=== PATIENT | female | born 1995 | race Caucasian/White ===

== ENCOUNTER 2022-11-12 13:58 | Outpatient (CLI) | payer BC, SELFPAY ==
--- NOTE | 2022-11-12 14:00 | CRLHL7_ITS ---
For Patients: As a result of the Cures Act, medical imaging exams and procedure reports are released immediately into your electronic medical record. You may view this report before your referring provider. If you have questions, please contact your health care provider. INDICATION: Early . Dating and viability. LMP: 09/04/2022 GAEL by LMP: 06/11/2023 Gestational age: 9 weeks 6 days Previous ultrasound: No TECHNIQUE: Obstetrical ultrasound. Endovaginal imaging and transabdominal imaging were utilized. Endovaginal imaging was required to visualize early and adnexal structures. FINDINGS: CRL: 3.3 cm, 10 weeks 2 days. GAEL: 06/08/2023 heart rate: 170 bpm Gestational sac: 4.7 cm, appears within normal limits Yolk sac: 3.5 mm, appears within normal limits Right ovary: Within normal limits; 3.7 x 2.5 x 2.3 cm. CL. Left ovary: 2.4 x 1.1 x 1.4 cm IMPRESSION: 1. Sonographically normal appearance of an intrauterine . 2. Single fetus with the yolk sac visible and normal separation of the amnion and chorion. 3. Corpus luteum cyst is probably in the right ovary, 1.8 cm. 4. There is a large anechoic sonolucent left ovarian or paraovarian cyst measuring 9.5 x 5.1 x 10.1 cm. Suggest follow-up. Dictated by Amador Bolaños MD @ 11/15/2022 1:30:39 PM (Electronically Signed)
== END 2022-11-12 13:59 | disposition home or self-care (01) ==
LOC: US 14:00
PROVIDERS: Visit Provider Physician Assistant
DX: Z34.91 Encounter for supervision of normal pregnancy, unspecified, first trimester (principal); Z3A.09 9 weeks gestation of pregnancy
CPT/HCPCS: 76801; 76817; 86592; 86703; 86762; 86787; 86803; 86850; 86900; 86901; 87086; 87340; 87491; 87591

== ENCOUNTER 2022-11-12 15:27 | Outpatient (CLI) | payer BC, SELFPAY ==
[2022-11-12 18:49] LABS: Chlamydia DNA Amplified* NOT DETECTED (No Detected); GC DNA Amplified* NOT DETECTED (No Detected)
== END 2022-11-12 15:28 | disposition home or self-care (01) ==
PROVIDERS: Visit Provider Physician Assistant
DX: Z34.91 Encounter for supervision of normal pregnancy, unspecified, first trimester (principal); O34.81 Maternal care for other abnormalities of pelvic organs, first trimester; N83.202 Unspecified ovarian cyst, left side; Z3A.10 10 weeks gestation of pregnancy
CPT/HCPCS: 86592; 86703; 86762; 86787; 86803; 86850; 86900; 86901; 87086; 87340; 87491; 87591

== ENCOUNTER 2022-12-10 12:50 | Outpatient (CLI) | payer BC, SELFPAY ==
--- NOTE | 2022-12-10 13:00 | CRLHL7_ITS ---
For Patients: As a result of the Century Cures Act, medical imaging exams and procedure reports are released immediately into your electronic medical record. You may view this report before your referring provider. If you have questions, please contact your health care provider. INDICATION: Followup large left adnexal cyst. TECHNIQUE: Transabdominal obstetrical ultrasound. COMPARISON: November 12, 2022. FINDINGS: There is a large left adnexal or ovarian cyst measuring 10.1 x 4.8 x 11.1 cm previously 9.2 x 5.1 x 10.1 cm. This could also potentially be a paraovarian cyst/cyst in the broad ligament. Single living intrauterine with a heart rate of 144 beats per minute. Right lateral and fundal placenta. Amniotic fluid volume is normal with a single deepest pocket measurement of 3.5 cm. Composite calculated ultrasound age 14 weeks 5 days with a sonographic due date of June 05, 2023. (The crown-rump length of 8.89 cm corresponds to a 14 week 6 day gestation). IMPRESSION: 1. Single living intrauterine with a composite calculated ultrasound age of 14 weeks 5 days with a sonographic due date of June 05, 2023. 2. Enlarged left adnexal/ovarian cyst measuring 10.1 x 4.8 x 11.1 cm previously 9.2 x 5.1 x 10.1 cm. Dictated by Ishaan Abel MD @ 12/10/2022 4:06:52 PM (Electronically Signed)
== END 2022-12-10 12:51 | disposition home or self-care (01) ==
PROVIDERS: PCP Physician Assistant; Visit Provider Physician Assistant
DX: N83.12 Corpus luteum cyst of left ovary (principal)
CPT/HCPCS: 76816; 93976

== ENCOUNTER 2023-01-27 14:02 | Outpatient (CLI) | payer BC, SELFPAY ==
--- NOTE | 2023-01-27 14:00 | CRLHL7_ITS ---
For Patients: As a result of the Century Cures Act, medical imaging exams and procedure reports are released immediately into your electronic medical record. You may view this report before your referring provider. If you have questions, please contact your health care provider. INDICATION: Evaluate anatomy. COMPARISON: 11/12/2022, 12/10/2022 TECHNIQUE: Real time saravia scale imaging of the fetus was performed as well as color Doppler analysis of the umbilical vessels. FINDINGS: Sonographic imaging demonstrates a single living intrauterine gestation. Fetus demonstrates a regular cardiac rate of 142 beats per minute. Fetus has a breech position. The placenta lies posteriorly without evidence of placenta previa. The placental edge is located 6.8 cm from the internal cervical os. Amniotic fluid volume appears normal. Single deepest vertical pocket: 4.1 cm. The cervix is closed and measures 3.1 cm in length. The composite ultrasound gestational age is calculated at 21 weeks 0 days with an estimated sonographic due date of 06/09/2023. The estimated weight is 386 grams which lies at the 56th %. The following biometric measurements were obtained: Biparietal diameter: 5.0 cm/21 weeks 0 days 61st% Head circumference: 18.2 cm/20 weeks 4 days 35th% Abdominal circumference: 15.9 cm/21 weeks 0 days 53rd% Femur length: 3.5 cm/20 weeks 6 days 47th% The HC/AC ratio measures: 1.15 range (1.06-1.25) On anatomic survey, there is a normal appearance of the cerebral ventricles, cavum septi pellucidi, cisterna magna and cerebellum. The nose, lips, and facial profile appear normal. The cervical, thoracic and lumbar spine are well visualized and appear normal. There is a normal four-chamber heart view and the left and right ventricular outflow tracts appear normal. The diaphragm and stomach appear normal. The kidneys and bladder also appear normal. There is a normal three-vessel cord and cord insertion site. The four extremities appear normal. IMPRESSION: Normal OB ultrasound exam with concordance of clinical and sonographic dating. No intrinsic abnormalities noted on anatomic survey. Dictated by Brando Samano MD @ 01/27/2023 3:59:42 PM (Electronically Signed)
== END 2023-01-27 14:03 | disposition home or self-care (01) ==
LOC: US 14:02
PROVIDERS: PCP Physician Assistant; Visit Provider Obstetrics & Gynecology
DX: Z34.92 Encounter for supervision of normal pregnancy, unspecified, second trimester (principal); Z3A.21 21 weeks gestation of pregnancy
CPT/HCPCS: 76805

== ENCOUNTER 2023-03-23 08:53 | Outpatient (CLI) | payer BC, SELFPAY ==
--- NOTE | 2023-03-23 08:45 | CRLHL7_ITS ---
For Patients: As a result of the Cures Act, medical imaging exams and procedure reports are released immediately into your electronic medical record. You may view this report before your referring provider. If you have questions, please contact your health care provider. INDICATION: Third trimester scan, evaluate growth. COMPARISON: 01/27/2023 TECHNIQUE: Real time saravia scale imaging of the fetus was performed. FINDINGS: Sonographic imaging demonstrates a single living intrauterine gestation. Fetus demonstrates a regular cardiac rate of 131 beats per minute. Fetus has a breech position. The placenta lies fundal. Amniotic fluid volume appears normal and there is a single deepest vertical pocket: 4.8 cm. The estimated weight is 1326gm which lies at the 55th %. On the prior OB ultrasound exam dated 01/27/2023 the estimated weight was at the 56th%. BPD 21st percentile. HC 59th percentile. AC 77th percentile. FL 19th percentile. The HC/AC ratio measures 1.07 range (0.99-1.21). Left adnexal cyst is present measuring 10.4 x 7.1 x 8.5 cm. IMPRESSION: Sonographic gestational age 28 weeks 6 days and sonographic due date 06/09/2023. Good correlation with dates. Normal interval growth. Estimated weight 55th percentile. Abdominal circumference 77th percentile. Simple anechoic left adnexal cyst measuring 10.4 x 7.1 x 8.5 cm. Dictated by Brando Samano MD @ 03/23/2023 10:32:30 AM (Electronically Signed)
== END 2023-03-23 08:54 | disposition home or self-care (01) ==
LOC: US 08:54
PROVIDERS: Visit Provider Obstetrics & Gynecology
DX: Z34.93 Encounter for supervision of normal pregnancy, unspecified, third trimester (principal); O34.83 Maternal care for other abnormalities of pelvic organs, third trimester; N83.292 Other ovarian cyst, left side; Z3A.28 28 weeks gestation of pregnancy
CPT/HCPCS: 76816; 86592

== ENCOUNTER 2023-05-06 11:59 | Outpatient (CLI) | payer BC, SELFPAY ==
--- NOTE | 2023-05-06 12:15 | CRLHL7_ITS ---
For Patients: As a result of the Century Cures Act, medical imaging exams and procedure reports are released immediately into your electronic medical record. You may view this report before your referring provider. If you have questions, please contact your health care provider. HISTORY: Follow-up left adnexal cyst, growth, biophysical profile. COMPARISON: Ob ultrasound from 03/23/2023. TECHNIQUE: Ultrasound examination of the is performed with transabdominal technique. FINDINGS: A single intrauterine gestation is seen in breech presentation with regular cardiac activity at 121 beats per minute. The placenta is fundal and is free of the cervical os. The placental grade is III and the amniotic fluid volume is normal. Single deepest vertical pocket: Normal at 7.1 cm. The cervix is normal in appearance and is normal in length at 4.4 centimeters. BPD: 8.6 cm 34 weeks 5 days HC: 32.7 cm 37 weeks 1 day AC: 30.3 cm 34 weeks 2 days FL: 6.4 cm 32 weeks 6 days The estimated age by ultrasound is 34 weeks 5 days, with an estimated date of delivery of 06/12/2023. This correlates well with the clinical age of 34 weeks 6 days and previous ultrasound. The ultrasound ratios are normal. The estimated weight of 2400 grams is at the 29th percentile. The rate of growth is decreased compared to the previous study where estimated weight was at the 55th percentile. A anatomic survey is not performed. Normal biophysical profile score of 8/8, no points off. There is a large cyst in the left adnexa measuring 8.3 x 10.2 x 6.7 centimeters, unchanged from the previous study. IMPRESSION: Single intrauterine gestation in breech presentation with regular cardiac activity. Estimated gestational age is 34 weeks 5 days. Estimated weight of 2400 grams is at the 29th percentile. The rate of growth is decreased compared to the previous study where estimated weight was at the 55th percentile. Normal biophysical profile score of 8/8, no points off. Stable large left adnexal cyst measuring up to 10.2 centimeters in diameter. Dictated by Mervin Lyons MD @ 05/07/2023 6:35:27 PM (Electronically Signed)
== END 2023-05-06 12:00 | disposition home or self-care (01) ==
LOC: US 11:59
PROVIDERS: Visit Provider Obstetrics & Gynecology
DX: O34.83 Maternal care for other abnormalities of pelvic organs, third trimester (principal); N83.292 Other ovarian cyst, left side; Z3A.34 34 weeks gestation of pregnancy
CPT/HCPCS: 76816; 76819

== ENCOUNTER 2023-05-13 11:54 | Outpatient (CLI) | payer BC, SELFPAY | END 2023-05-13 11:55 | disposition home or self-care (01) | LOC: NFLDREF 05-15 07:42 | PROVIDERS: Visit Provider Obstetrics & Gynecology | DX: Z34.93 Encounter for supervision of normal pregnancy, unspecified, third trimester (principal); Z3A.35 35 weeks gestation of pregnancy | CPT/HCPCS: 87081; 87653 ==

== ENCOUNTER 2023-05-26 09:01 | Outpatient (CLI) | payer BC, SELFPAY ==
[2023-05-26 09:19] VITALS: TEMP 37.1
[2023-05-26] MEDS: TERBUTALINE 1 MG/ML INJ 0.25 MG SUBCUT (10:20)
--- NOTE | 2023-05-26 10:26 | PM.PROC ---
Procedure Note Time Seen by Provider: 10:26 Date Seen: 05/26/23 Date of procedure: 05/26/23 Will [facility] bill your pro fee for this procedure?: Yes Procedure Description: I discussed with patient that 3-4% of pregnancies are breech at term.?We discussed the rationale for doing the procedure at 37 weeks (technically feasible, fetus is term should delivery be indicated, and lower risk of reversion). Contraindication to external cephalic version is anything that is a contraindication to vaginal delivery such as a placenta previa, multiple previous CD etc. Patient doesn?t have any contraindications. The benefit of an external cephalic version is fewer delivery.? There is a lower odd of endometritis, sepsis, hospital stay greater than 7 days.? It is important to know that there is no difference for low APGARs, low umbilical vein pH, and when comparing external cephalic version with subsequent vaginal delivery to planned delivery at term. The risks of external cephalic version: heart rate changes (most common in stabilizes when procedure is discontinued). ?Overall, serious adverse effects are very low, all < 1%.? These include placental abruption, umbilical cord prolapse, rupture of membranes, stillbirth, maternal hemorrhage.? The risk of an emergency delivery is also low. We discussed factors affecting success.? The overall success rate quoted in the literature is 58%.? Factors that her favorable towards a successful external cephalic version are increased parity, transverse or oblique presentation, normal amniotic volume, normal maternal BMI, and posterior placental location. Factors more associated with failure is nulliparity, advanced dilation, weight less than 2500g, anterior placenta, and low station. She will be given terbutaline for tocolysis prior to the procedure.? We discussed that terbutaline has doubled the rate of ECV success.? With regards to anesthesia, neuraxial anesthesia is available to her should she desire. I will be performing an ultrasound prior to the ECV to confirm positioning.? Additionally, if we are to proceed with the external cephalic version we will get a reactive NST prior to proceeding.? During the procedure intermittent ultrasonography will be used to assess for status.? If there is any concern for or maternal well being the procedure will be terminated immediately. After the procedure, regardless of success or not, she and fetus will be monitored for at 1 hr prior to discharge. Patient does not require RhoGAM as she is Rh positive. Procedure: External cephalic version Procedure Description: PREOPERATIVE DIAGNOSIS: 1. Intrauterine at 37 5/7 weeks gestation. 2. Breech presentation. POSTOPERATIVE DIAGNOSIS: 1. Intrauterine at 37 5/7 weeks gestation. 2. Vertex presentation. PROCEDURE: 1. Nonstress test. 2. Limited OB ultrasound. 3. External cephalic version. SURGEON: MD Kali INSPECTOR TESTER SORTER: MD Harpal ANESTHESIA: None. COMPLICATIONS: None. FINDINGS: Nonstress test: heart rate baseline 130s beats per minute, moderate variability, 15 x 15 accelerations present, no decelerations, category 1. Limited OB ultrasound: Single, living, intrauterine gestation in a monalisa breech presentation with the back along the maternal left, grossly normal amniotic fluid volume. PROCEDURE NOTE: A nonstress test was performed, which was reactive and reassuring. A limited OB ultrasound was performed at the bedside to determine position. Findings noted above. Informed consent was obtained for external cephalic version. Terbutaline 0.25 mg was administered to the patient subcutaneously. External cephalic version was attempted. Dr. Rowan applied upward pressure to the breech and I applied pressure to the vertex, and we attempted to gently coax the fetus in a forward roll in a counter-clockwise direction. This first attempt was successful. heart tones were noted to be normal after the attempt. The patient tolerated the procedure well. monitoring for 1 hour after the procedure was continued to be reassuring. Anesthesia: None Condition: stable Disposition: same day discharge Anesthesia: none
--- NOTE | 2023-05-26 12:31 | PC.OBNST ---
NST Note NST Note Start: 05/26/23 09:27 Freq: ONCE Status: Discharge Protocol: Document 05/26/23 11:55 PENTECOSTALISM (Rec: 05/26/23 12:30 PENTECOSTALISM [id number]) NST Note 1 Para (# of births) 0 EDC 06/11/23 Gestational Age In Weeks & Days 37 Weeks & 5 Days Patient Presented with Complaint(s) of Other Other Complaints ECV Reactive Yes Appropriate for Gestational Age Yes LIAM Garcia Date 05/26/23 Reactive Yes Appropriate for Gestational Age Yes LIAM Vance Date 05/26/23 OB NST charge Yes Complete NST Note via Write Note Yes The provider's electronic signature indicates the NST is reactive/appropriate for gestational age. *Note to provider: If an addendum is required, open the patient's chart and click on the note under the Nurse/Allied Health tab.
== END 2023-05-26 12:00 | disposition home or self-care (01) ==
LOC: OB 11:55 → OB OUT 14:24 → OB 14:25
PROVIDERS: Visit Provider Obstetrics & Gynecology
DX: O47.1 False labor at or after 37 completed weeks of gestation (principal); Z3A.37 37 weeks gestation of pregnancy
CPT/HCPCS: 59025; 59412; 76815; 99211; J3105

== ENCOUNTER 2023-06-13 15:56 | Inpatient (IN) | payer BC, SELFPAY ==
[2023-06-13 16:30] VITALS: BMI 27.3
[2023-06-13 16:32] VITALS: BP 131/81; PULSE 72; RESP 16; TEMP 36.8
--- NOTE | 2023-06-13 17:11 | W.PM.LDBA ---
Subjective History of Present Illness Narrative: Patient is being admitted to Labor and Delivery for elective IOL. She is a 28 year old woman at 40 2/7 weeks gestation. She had fetus in breech presentation, but is now s/p successful ECV 01/23. Her full history and physical was dictated by Priscilla Jackson on 05/23/23. Please see this for details. Specific Issues/Plans 1. Large L adnexal cyst, 9.2 x 5.1 x 10.1 cm Repeat ultrasound in 4 weeks and visit with MD: Simple cyst, left ovary measuring 10.1 x 4.8 x 11.1 cm. Perinatology consultation: Saw [facility] on 12/28/2022. Simple left adnexal cyst measuring 9.0 x 7.4 x 8.4 mm. For simple cyst less than 10 cm, it is reasonable to follow the cyst size expectantly without surgical removal. Quoted risk: 2% risk for cyst rupture during and , 10% risk for ovarian torsion, particularly in 1st trimester and . The patient will follow up with [facility] again in 4 weeks for comprehensive ultrasound and to reassess ovarian cyst. If the cyst is stable in size or smaller, recommendation to reassess cyst size at 28 and 34 weeks in [place]. And follow-up: 01/25/2023, left simple ovarian cyst 9.4 x 8.5 x 9.6 cm. Recommendation made to reassess the ovarian cyst at 28 and 34 weeks gestation in [place]. 03/23/23: Left adnexal cyst: 10.4 x 7.1 x 8.5 cm. No significant change. Growth ultrasound: Breech presentation, single deepest pocket of amniotic fluid 4.8 cm, BPD: 21 percentile, HC: 59 percentile, AC: 77 percentile, FL: 19 percentile. EFW 1326 g, 55 percentile. 2. Anemia: Hgb at 28 weeks: 10.0 Start ferrous sulfate every other day Repeat Hgb at 34 weeks 3. Breech at 37 weeks, s/p successful ECV on 05/26 - Confirm presentation by US on admission for labor Tdap: 04/05/23 OB - Problem Based A/P Additional Plan (1) Left ovarian cyst: Problem details: 10.1 x 4.8 x 11.1 cm on most recent US Status: Acute (2) Term : Status: Acute Plan: Cervical ripening instituted with cytotec vaginal tablets 25 mcg Q 3-4 hrs. EFM per protocol. GBS negative (3) Anemia affecting : Status: Acute Plan: Hb 10.9 at admit. Delivery/Labor/Induction Plan Plan: induction Induction method: per misoprostol protocol OB Exam Physical Exam Vital signs: Pulse BP 72 131/81 06/13/23 16:32 06/13/23 16:32 Narrative: Physical exam: General: No acute distress Psych: Alert and oriented x3, full affect HEENT: Normocephalic, atraumatic Neck: No cervical adenopathy, no thyromegaly Heart: Regular rate and rhythm, no murmur rub or gallop Lungs: Clear to auscultation bilaterally Abdomen: Soft, nontender, gravid, cephalic lie Pelvic exam: Cervix 1 cm, long, high, mid position, moderate consistency tracing: Baseline 120, accelerations present, no decelerations, moderate variability. Bedside ultrasound: Confirms cephalic lie
[2023-06-13] MEDS: miSOPROStoL 25 MCG/0.25 TABLET VAGINAL ×3 (17:30→23:37)
[2023-06-13 18:30] VITALS: RESP 16; TEMP 36.9
[2023-06-13 18:46] LABS: Basophils Absolute Auto 0.03 K/uL (0.00-0.30); Basophils Percent Auto 0.3 % (0.0-3.0); Eosinophils Absolute Auto 0.07 K/uL (0.00-0.50); Eosinophils Percent Auto 0.7 % (0.0-7.0); Hematocrit 34.5 % (33.0-51.0); Hemoglobin* 11.5 gm/dL (12.0-16.0); Immature Granulocytes Abs Auto 0.02 K/uL (0.00-0.30); Immature Granulocytes Pct Auto 0.2 %; Lymphocytes Percent Auto 14.7 % (20-44); Mean Corpuscular HGB Conc 33 gm/dL (32-36); Mean Corpuscular Hemoglobin 30 pg (26-34); Mean Corpuscular Volume 91 fL (80-100); Monocytes Percent Auto 8.1 % (0.0-11.0); Platelet Count* 198 K/uL (140-440); RDW Coefficient of Variation % 14.7 % (11.5-15.5); Red Blood Count 3.79 m/uL (4.00-5.20); White Blood Count* 10.75 K/uL (4.50-11.00)
[2023-06-13 18:49] LABS: Slide Review Reflex No
[2023-06-13 20:18] VITALS: BP 130/80; PULSE 78; RESP 18; TEMP 36.8
[2023-06-13 23:30] VITALS: BP 140/95; PULSE 71; RESP 16; TEMP 37.1
[2023-06-13] MEDS: MORPHINE 10 MG/ML inj IM (23:38)
[2023-06-13] MEDS: hydrOXYzine pamoate 25 MG CAPSULE 100 MG PO (23:38)
[2023-06-13 23:49] VITALS: BP 122/84; PULSE 68
[2023-06-14] VITALS (87 sets, daily range): BP systolic 94–146; BP diastolic 52–97; PULSE 56–97; RESP 16–18; TEMP 36.6–37.7; O2SAT 88–100
[2023-06-14] MEDS: LACTATED RINGERS 1000 ML 1,000 ML 500 ML IV ×3 (01:52→07:41)
[2023-06-14] MEDS: OXYTOCIN 30 unit/500 ML in NS 30 UNIT/500 ML BAG IVPB (02:55)
[2023-06-14] MEDS: LIDOCAINE 2% (PF) 5 ML VIAL EPIDURAL (03:39)
[2023-06-14] MEDS: ROPIVACAINE 0.2% 100 ml 100 ML 12 MG EPIDURAL ×2 (03:45→11:53)
[2023-06-14] MEDS: PHENYLEPHRINE 100 MCG/ML SYRINGE IVP ×4 (03:51→04:40)
--- NOTE | 2023-06-14 03:58 | P.ANBPRC_ITS ---
[facility] Social History Narrative: . Her family owns [employer] [facility] What is your current living situation?: I presently have a place to live Problems where you live: no known problems In the past 12 months, utilities in danger of being shut off: no In past 12 months, lack of transportation kept you from medical appts, meetings, work, or getting things needed for daily living: no In the past 12 mos, have been you worried that your food would run out before you had money to buy more?: never true In the past 12 mos, the food you bought just didn't last and you didn't have money to buy more?: never true Smoking Status: Never smoker How often does anyone, including family, friends and others, physically hurt you : never How often does anyone, including family, friends and others, insult or talk down to you: never How often does anyone, including family, friends and others, threaten you with harm: never How often does anyone, including family, friends and others, scream or curse at you: never Little interest or pleasure in doing things: not at all Feeling down, depressed, or hopeless: not at all Meds Home Medications and Allergies Home Medications Medication Instructions Recorded Confirmed Type prenat.vits,benito,ctj-psgc-iupio 1 tab PO QDAY 11/12/22 06/13/23 History calcium carbonate 200 mg calcium 200 mg PO BID 04/05/23 06/13/23 History (500 mg) chewable tablet (Tums) Allergies Allergy/AdvReac Type Severity Reaction Status Date / Time No Known Drug Allergies Allergy Verified 06/06/23 08:47 Results Labs Labs: Laboratory Results - last 24 hr 06/13/23 06/13/23 14:43 18:43 WBC 10.75 RBC 3.79 L Hgb 11.5 L Hct 34.5 MCV 91 MCH 30 MCHC 33 RDW Coeff of Jalil 14.7 Plt Count 198 Neut % (Auto) 76.0 H Lymph % (Auto) 14.7 L [place] % (Auto) 8.1 Eos % (Auto) 0.7 Baso % (Auto) 0.3 Neut # (Auto) 8.20 H Lymph # (Auto) 1.60 [place] # (Auto) 0.90 Eos # (Auto) 0.07 Baso # (Auto) 0.03 Abs Immat Gran (auto) 0.02 Imm/Tot Granulo (auto) 0.2 Blood Type B Positive Antibody Screen NEGATIVE Vital Signs Vital Signs: Last Vital Signs Temp 98.2 F 06/14/23 02:49 Pulse 61 06/14/23 03:57 Resp 18 06/14/23 02:49 BP 112/70 06/14/23 03:57 Pulse Ox 98 06/14/23 03:57 Weight: 72.376 kg Height: 162.56 cm Anesthesia Procedures Epidural Insertion Patient Location: OB Start Time: 03:10 Stop Time: 04:10 Start Date: 06/14/23 Stop Date: 06/14/23 Reason for Block: procedure for pain Patient Position: sitting Performed By: Candis Henderson Preanesthetic Checklist: IV checked, risks and benefits discussed, monitors and equipment checked, pre-op evaluation, timeout performed and anesthesia consent Prep: chlorhexidine gluconate Monitoring: blood pressure monitoring, continuous pulse oximetry and heart rate Approach: midline Vertebral Space: lumbar (1-5) Epidural Technique: JESICA saline Needle Type: Tuohy needle Injection Technique: continuous catheter (continuous catheter) Needle gauge: 17 Needle Length (cm): 10 cm Needle Insertion Depth (cm): 5 Catheter Gauge: 19 Catheter Type: multi-orifice Catheter at skin depth (cm): 12 Test Dose Result: negative and lidocaine 1.5% with epinephrine 1 to 200,000
[2023-06-14 05:49] LABS: Hematocrit 35.3 % (33.0-51.0); Hemoglobin* 11.6 gm/dL (12.0-16.0); Mean Corpuscular HGB Conc 33 gm/dL (32-36); Mean Corpuscular Hemoglobin 30 pg (26-34); Mean Corpuscular Volume 91 fL (80-100); Platelet Count* 166 K/uL (140-440); Red Blood Count 3.88 m/uL (4.00-5.20); White Blood Count* 13.84 K/uL (4.50-11.00)
[2023-06-14 05:53] LABS: Slide Review Reflex No
[2023-06-14 06:04] LABS: Alanine Aminotransferase* 13 U/L (4-35); Aspartate Amino Transferase* 30 U/L (12-35); Blood Urea Nitrogen* 8 mg/dL (5-24); Creatinine* 0.5 mg/dL (0.5-1.5); Est. Creatinine Clearance* 143.36; Estimated Glomerular Filt Rate 130 ml/min
--- NOTE | 2023-06-14 07:46 | P.OBPN_ITS ---
Subjective Time Seen by Provider: 07:30 Date Seen: 06/14/23 Narrative: Patient feels well. Pain under good control with epidural. Objective Vital Signs: Last Vital Signs Temp 97.9 F 06/14/23 06:59 Pulse 73 06/14/23 07:37 Resp 18 06/14/23 06:59 BP 114/66 06/14/23 07:37 Pulse Ox 97 06/14/23 04:07 Pelvic Exam Dilation (cm): 7 Effacement (%): 75 Station: -2 Comments: BBOW. Exam by RN at 0556. Contractions Monitor mode: External Contraction Frequency: 1-3 minutes Contraction pattern: Regular Contraction intensity: Strong/Firm Assessment Assessment: active labor Status: Category l Heart Rate Baseline: 130 Welding Manager Variability: Moderate (6-25) Monitor Accelerations: Present Monitor Decelerations: None Plan Plan: Continue expectant management. Amniotomy offered, patient declines at this time as she would like additional rest.
--- NOTE | 2023-06-14 10:19 | PM.OBPNL ---
Subjective Time Seen by Provider: 10:20 Date Seen: 06/14/23 Narrative: Feeling slightly more pressure with contractions. Objective Vital Signs: Last Vital Signs Temp 99.9 F H 06/14/23 08:22 Pulse 65 06/14/23 10:09 Resp 16 06/14/23 08:22 BP 111/62 06/14/23 10:09 Pulse Ox 97 06/14/23 04:07 Pelvic Exam Dilation (cm): 4 Effacement (%): 100 Station: -2 Comments: BBOW Contractions Monitor mode: External Contraction pattern: Regular Contraction intensity: Strong/Firm Assessment Station: -2 Amniotic Membrane Status: AROM (Clear fluid, blood clot washed out with flow) Status: Category ll Heart Rate Baseline: 125 Intermediate Variability: Minimal (3-5) Monitor Accelerations: Absent Monitor Decelerations: None Plan Plan: Amniotomy performed. Recheck in 2 hours.
--- NOTE | 2023-06-14 12:04 | PM.OBPNL ---
Subjective Time Seen by Provider: 11:55 Date Seen: 06/14/23 Narrative: Patient is still comfortable with contractions. Objective Vital Signs: Last Vital Signs Temp 98.8 F 06/14/23 12:01 Pulse 64 06/14/23 11:52 Resp 16 06/14/23 12:01 BP 108/55 L 06/14/23 11:52 Pulse Ox 97 06/14/23 04:07 Pelvic Exam Dilation (cm): 6 Effacement (%): 100 Station: 0 Contractions Monitor mode: External Contraction Frequency: 2-3.5 minutes Contraction pattern: Regular Contraction intensity: Strong/Firm Assessment Assessment: active labor Station: 0 Amniotic Membrane Status: AROM (Clear fluid, blood clot washed out with flow) Status: Category l Heart Rate Baseline: 130 Prison Variability: Moderate (6-25) Monitor Accelerations: Present Monitor Decelerations: None Plan Plan: Begin pitocin augmentation.
[2023-06-14] MEDS: LACTATED RINGERS 1000 ML 1,000 ML 125 ML IV (13:09)
[2023-06-14] MEDS: LIDOCAINE 1 % PF 30 ML INJECTION (14:48)
--- NOTE | 2023-06-14 15:22 | W.PM.OBVAGDE ---
OB Procedure Vag Delivery Mother Details Mother Details: The patient is a 28 year-old, 1, Para 1, admitted on 06/13/23 at 40.2 Days gestation for elective induction of labor. Cervical ripening was done overnight with vaginal misoprostol 25 mcg every 3-4 hours. She received a total of 3 doses which precipitated labor. : 1 Para: 0 Weeks Gestation: 39.3 Admission Date: 06/13/23 Additional Details Amniotic Membrane Rupture Date: 06/14/23 Amniotic Membrane Rupture Time: 10:15 Amniotic Membrane Fluid Description: Clear Analgesia/Anesthesia Type: Epidural (0330) Waterbirth: No Pitcoin: Yes Intrapartal Events: Labor Induction Induction Method: per misoprostol protocol, per pitocin protocol and AROM Delivery augmentation: rupture of membranes Labor Onset: 03:30 Complete: 14:08 Pushin:18 Heart: heart tones during second stage were 130 baseline, variable decelerations with quick return to baseline. Delivery Details Delivery Date: 06/14/23 Delivery Time: 14:37 Route of delivery: Infant Gender: Female Viability: Alive; Heart Rate Present Position at Delivery: OA Delivery Details: Delivered over 2nd degree perineal laceration via spontaneous vaginal delivery. was placed on maternal abdomen.? Cord was clamped and cut after a 30-60 second delay. Nose and mouth were bulb suctioned.? Infant weight pending. 1 Minute Interval Total Score: 9 5 Minute Interval Total Score: 9 Additional Details Shoulder Dystocia: No Placenta Delivery Time: 14:45 Placental Delivery Description: Spontaneous Delivery repair: Chromic Procedure Done: Global Blood Loss: 400 Laceration: Perineal - 2nd Degree (and bilateral periurethral) Blood Loss Measurement Type: QBL Bakri Used: No Sponge/Need Count Correct: Yes Cord Vessel Description: 3 Vessels Event Summary Status: Mother and infant were stable after delivery. Disposition: floor
[2023-06-14] MEDS: ACETAMINOPHEN 500 MG TABLET 1000 MG PO ×2 (16:55→22:45)
[2023-06-14] MEDS: BENZOCAINE/MENTHOL SPRAY 85 GM AEROSOL 1 APPLIC TOPICAL (17:00)
[2023-06-14] MEDS: DOCUSATE SODIUM 100 MG CAPSULE PO (17:00)
[2023-06-14 17:29] LABS: Hematocrit 34.4 % (33.0-51.0); Hemoglobin* 11.4 gm/dL (12.0-16.0); Mean Corpuscular HGB Conc 33 gm/dL (32-36); Mean Corpuscular Hemoglobin 30 pg (26-34); Mean Corpuscular Volume 91 fL (80-100); Platelet Count* 191 K/uL (140-440); Red Blood Count 3.78 m/uL (4.00-5.20); White Blood Count* 21.81 K/uL (4.50-11.00)
[2023-06-14 17:34] LABS: Slide Review Reflex No
[2023-06-14 17:45] LABS: Creatinine* 0.5 mg/dL (0.5-1.5); Est. Creatinine Clearance* 143.36; Estimated Glomerular Filt Rate 130 ml/min
[2023-06-14 17:46] LABS: Alanine Aminotransferase* 14 U/L (4-35); Aspartate Amino Transferase* 30 U/L (12-35); Blood Urea Nitrogen* 7 mg/dL (5-24)
[2023-06-14] MEDS: IBUPROFEN 600 MG TABLET PO (20:14)
[2023-06-15 01:26] VITALS: BP 129/78; PULSE 65; RESP 16; TEMP 36.7; O2SAT 97
[2023-06-15] MEDS: IBUPROFEN 600 MG TABLET PO ×2 (05:24→20:45)
[2023-06-15 05:26] VITALS: BP 133/82; PULSE 84; RESP 16; TEMP 36.7; O2SAT 98
[2023-06-15 07:11] LABS: Hemoglobin* 10.5 gm/dL (12.0-16.0)
--- NOTE | 2023-06-15 07:34 | P.OBPN_ITS ---
OB - PN:Subj Subjective Date Seen: 06/15/23 Patient comments OB post-: no complaints, pain well controlled, tolerating diet and flatus present [place] status: bottle and doing well feeding status: exclusively bottle feeding Narrative: Complications:? none? The patient feels well.? The pain is well controlled with current medications.? She has no new complaints.? Urinary output is adequate and she is voiding without difficulty.? Has a good appetite, is tolerating a general diet, is passing flatus, and has not had a bowel movement.? Has small amount of rubra lochia.? She is ambulating well.?She is bottle feeding and states that baby is eating well. OB - PN: Obj Exam Physical Exam: Vital signs: Temp Pulse Resp BP Pulse Ox O2 Del Method 98.0 F 84 16 133/82 98 Room Air 06/15/23 05:26 06/15/23 05:26 06/15/23 05:26 06/15/23 05:26 06/15/23 05:26 06/15/23 05:26 Narrative: GENERAL APPEARANCE:? normal affect, alert, no distress? MOOD:? appropriate? CHEST:? clear to auscultation and percussion? HEART:? regular rate and rhythm? ABDOMEN:? soft, non-tender the uterine fundus is U/2 and is appropriate for the stage of recovery.? PERINEUM:? mild edema of the perineum, there is a 2nd degree laceration that is healing well.? EXTREMITIES:? normal and no edema? OB - PN: Obj Data Labs Labs: Laboratory Results - last 24 hr 06/14/23 06/15/23 17:23 06:57 WBC 21.81 H RBC 3.78 L Hgb 11.4 L 10.5 L Hct 34.4 MCV 91 MCH 30 MCHC 33 Plt Count 191 BUN 7 Creatinine 0.5 Estimated Creat Clear 143.36 Estimated GFR 130 AST 30 ALT 14 OB - PN: A/P Delivery Assessment and Plan (1) Left ovarian cyst: Problem details: 10.1 x 4.8 x 11.1 cm on most recent US Status: Acute (2) care following vaginal delivery: Status: Acute Plan day: 1 Plan: routine care Comments: 32 year old on day 1.? 1. Routine cares.? 2. Anticipate discharge tomorrow.?
[2023-06-15 08:30] VITALS: BP 137/89; PULSE 71; RESP 18; TEMP 36.5; O2SAT 96
[2023-06-15 12:25] VITALS: BP 135/89; PULSE 73; RESP 18; TEMP 36.4; O2SAT 98
[2023-06-15 15:00] VITALS: BP 123/88; PULSE 74; RESP 16; TEMP 36.5; O2SAT 99
[2023-06-15] MEDS: DOCUSATE SODIUM 100 MG CAPSULE PO (17:41)
[2023-06-15 20:45] VITALS: BP 143/91; PULSE 95; RESP 16; TEMP 36.4; O2SAT 98
[2023-06-16 00:36] VITALS: BP 134/85
[2023-06-16 05:02] VITALS: BP 147/88; PULSE 76; RESP 16; TEMP 36.8; O2SAT 95
[2023-06-16 07:23] VITALS: BP 127/79; PULSE 76; RESP 16; TEMP 36.7; O2SAT 97
[2023-06-16] MEDS: IBUPROFEN 600 MG TABLET PO (07:29)
[2023-06-16 07:35] LABS: Hematocrit 31.4 % (33.0-51.0); Hemoglobin* 10.4 gm/dL (12.0-16.0); Mean Corpuscular HGB Conc 33 gm/dL (32-36); Mean Corpuscular Hemoglobin 31 pg (26-34); Mean Corpuscular Volume 92 fL (80-100); Platelet Count* 195 K/uL (140-440); White Blood Count* 12.27 K/uL (4.50-11.00)
[2023-06-16 07:41] LABS: Slide Review Reflex No
[2023-06-16 07:44] LABS: Alanine Aminotransferase* 16 U/L (4-35); Aspartate Amino Transferase* 31 U/L (12-35); Blood Urea Nitrogen* 6 mg/dL (5-24); Creatinine* 0.4 mg/dL (0.5-1.5); Estimated Glomerular Filt Rate 137 ml/min
--- NOTE | 2023-06-16 08:48 | P.DS_ITS ---
DS: Providers Provider Time Seen by Provider: 08:49 Date Seen: 06/16/23 Date of admission: 06/13/23 15:56 Primary care physician: Not a Local Provider Admitting Clinician: Zohra Domingo MD Attending Physician on discharge: Zohra Domingo MD Date of Discharge: 06/16/23 DS: Diagnosis Discharge Diagnosis (1) care following vaginal delivery: Status: Acute (2) Gestational hypertension: Status: Acute (3) Second degree laceration of perineum, delivered, current hospitalization: Status: Acute Exam Narrative: Exam Narrative: VSS, afebrile GENERAL APPEARANCE: ?normal affect, alert, no distress MOOD: ?appropriate HEENT: normocephalic, neck supple, full ROM CHEST: ?Symmetrical chest wall movement. ?Normal respiratory effort. ?Clear to auscultation HEART: ?regular rate and rhythm ABDOMEN: ?soft, non-tender. Uterine fundus is firm, 1 below Umbilicus, Midline and is appropriate for the stage of recovery. ?Bowel sounds present. PERINEUM: ?mild edema of the perineum, there is a 2nd degree laceration that is healing well. EXTREMITIES: ?normal and +1 edema Const: Vital Signs, click to edit/add: Vital Signs - 24 hr 06/15/23 12:25 06/15/23 15:00 06/15/23 20:45 Temperature 97.6 F 97.7 F 97.5 F L Pulse Rate [Blood Pressure Cuff] 73 74 95 Respiratory Rate 18 16 16 Blood Pressure [Le ft Arm] 135/89 123/88 143/91 H Pulse Oximetry 98 99 98 Oxygen Delivery Me thod Room Air Room Air Room Air 06/16/23 00:36 06/16/23 05:02 06/16/23 07:23 Temperature 98.2 F 98.1 F Pulse Rate [Blood Pressure Cuff] 76 76 Respiratory Rate 16 16 Blood Pressure [Le ft Arm] 134/85 147/88 H 127/79 Pulse Oximetry 95 97 Oxygen Delivery Me thod Room Air Room Air Documenting provider has reviewed patient's vital signs: yes OB - DS: Summary Hospital Course Hospital Course: Pamela is a 28 y.o. G 1 P 1 who was admitted to [facility]. ?She had an uncomplicated NVD The patient feels well. ?The pain is well controlled with current medications. ?She has no new complaints. ?She is bottle feeding and reports things are going well.? the patient has done well.? Vitals have been stable, however BP elevated at times, 140s/90s.? She has remained afebrile.? Has a good appetite, is tolerating a general diet. ?She is voiding without difficulty.? She is passing gas and has not had a bowel movement.? She is ambulating and denies any dizziness.? Has Small amount of rubra lochia. She is planning NFP and condoms for prevention. Problems: Gestational hypertension plan: Discharge home with baby. Follow up in 2 weeks and 6 weeks. Bottle feeding. Reviewed comfort measures for engorgement Gestational hypertension -consulted with Dr. Domingo -Discharge home with blood pressure cuff. Check BPs BID -Follow up in 3-5 days for blood pressure check in office Peripartum Data Infant delivery method: Vaginal Laceration description: Perineal - 2nd Degree complications: none [place] Infant Gender: Female Infant Discharge Plan: Home Status at Discharge Functional status at discharge: independent ambulation Overall status at discharge: patient is progressing back to baseline Time Spent with Patient Time attestation: Total time spent providing and/or coordinating discharge services: Time spent: Less than 30 minutes Discharge Plan Discharge Disposition: Home, Self-Care Date of Admission: 06/13/23 15:56 Attending Provider on Discharge: Priscilla Jackson Primary Care Provider: Provider,Not a Local Condition: Stable Anticipated Discharge Date/Time: 06/16/23 11:00 Discharge Medications: New docusate sodium 100 mg Capsule 100 mg PO BID PRNQty: 100 0RF Rx Instructions: Take 1 cap 1-2 times a day as needed for constipation ibuprofen 600 mg Tablet 600 mg PO Q6H PRNQty: 60 0RF Continued prenat.vits,benito,mjn-vzfk-llott Tablet 1 tab PO QDAY calcium carbonate [Tums] 200 mg calcium (500 mg) tablet,chewable 200 mg PO BID Discontinued ferrous sulfate 325 mg (65 mg iron) tablet 325 mg PO BID Qty: 60 0RF Rx Instructions: 1 tablet twice a day, repeat this dose every other day. Discharge Orders: Discharge Order (Routine); Ordered 06/16/23 Ordered By: Priscilla Jackson Patient Education: OB Over the Counter Medication Information, OB /Breast Feeding Additional Instructions: Take blood pressure twice a day. Call for blood pressures 140/90 or higher. Call for symptoms - headache, vision changes, pain on right side where ribs end. Follow up with a blood pressure check in the next 3-5 days. Follow up in the clinic in 2 weeks and 6 weeks. Activity Level: Activity as Tolerated Discharge Diet: Regular Follow Up Appointments: Provider,Not a Local [Primary Care Provider] - Forms: [employer] Info Instructions
== END 2023-06-16 12:40 | disposition home or self-care (01) | DRG 560 ==
PROVIDERS: Obstetrics & Gynecology; Admitting Provider Obstetrics & Gynecology; Visit Provider Obstetrics & Gynecology
DX: O48.0 Post-term pregnancy (principal); O34.83 Maternal care for other abnormalities of pelvic organs, third trimester; N83.292 Other ovarian cyst, left side; O99.02 Anemia complicating childbirth; D64.9 Anemia, unspecified; O70.1 Second degree perineal laceration during delivery; O13.5 Gestational [pregnancy-induced] hypertension without significant proteinuria, complicating the puerperium; Z3A.40 40 weeks gestation of pregnancy; Z37.0 Single live birth
CPT/HCPCS: 01967; 36415; 59200; 76815; 82565; 84450; 84460; 84520; 85018; 85025; 85027; 86850; 86900; 86901; A9270; J2001; J2270; J2371; J2795; J7120

== ENCOUNTER 2023-07-14 15:53 | Outpatient (CLI) | payer BC, SELFPAY ==
--- NOTE | 2023-07-14 16:00 | CRLHL7_ITS ---
For Patients: As a result of the Century Cures Act, medical imaging exams and procedure reports are released immediately into your electronic medical record. You may view this report before your referring provider. If you have questions, please contact your health care provider. INDICATION: f/u left adnexal cyst COMPARISON: 12/10/2022 TECHNIQUE: 2D saravia scale and color Doppler images were acquired of the pelvis using a transabdominal approach. FINDINGS: Sonographic images demonstrate a normal size and smooth outer contour of the uterus. Uterus measures 9.4 cm in length by 5.3 cm in AP diameter by 6.6 cm in transverse dimension. The myometrium has a normal uniform echotexture. The endometrial lining measures 10 mm in composite thickness. A small amount of fluid is present within the fundal endometrial canal related to recent delivery. This is considered incidental. The right ovary measures 2.7 x 1.2 x 1.6 cm in size and the left ovary measures 3.3 x 1.7 x 2.5 cm.. The ovaries demonstrate normal arterial and venous blood flow on color Doppler analysis. Circumscribed anechoic left parovarian cyst is similar measuring 10.0 x 5.9 x 7.9 cm, previously measuring 10.1 x 4.8 x 11.1 cm. No pelvic free fluid. IMPRESSION: Similar morphology and size of left parovarian cyst measuring 10 cm. Dictated by Brando Samano MD @ 07/15/2023 9:15:16 AM (Electronically Signed)
== END 2023-07-14 15:54 | disposition home or self-care (01) ==
LOC: US 15:54
PROVIDERS: Visit Provider Registered Nurse
DX: N83.202 Unspecified ovarian cyst, left side (principal)
CPT/HCPCS: 76856

== ENCOUNTER 2023-07-26 16:35 | Outpatient (CLI) | payer BC, SELFPAY | END 2023-07-26 16:36 | disposition home or self-care (01) | LOC: NFLDREF 16:36 | PROVIDERS: Visit Provider Registered Nurse | DX: Z39.2 Encounter for routine postpartum follow-up (principal) | CPT/HCPCS: 84443 ==

== ENCOUNTER 2023-10-20 07:26 | Day surgery (SDC) | payer OTHER, SELFPAY ==
[2023-10-20] VITALS (14 sets, daily range): BP systolic 93–116; BP diastolic 54–73; PULSE 46–65; RESP 16–20; TEMP 36.1–36.7; O2SAT 96–99; BMI 21.2
--- OUTSIDE RECORDS SUMMARY | 2023-10-20 07:28 | XMS_ITS | Referral Summary ---
Author Name Unknown Organization [facility] Address [address] [place] [address] Care Team Providers Care Bolt Sawyer Name Role Phone Unavailable Primary Care Provider Unavailabl e Social History Tobacco Use Types Packs/Day Years Used Date Smoking Tobacco: Never Assessed Adolescent Education Answer Date Record ed Getting School Help Needed Not on file 06/04 Sex and Gender Information Value Date Recorded Sex Assigned at Not on file Gender Identity Not on file Sexual Orientation Not on file Plan of Treatment Not on file
--- OUTSIDE RECORDS SUMMARY | 2023-10-20 07:28 | XMS_ITS | Encounter Summary ---
Author Name Unknown Organization [facility] Address [address] [place] [address] Care Team Providers Care Doughnut Machine Operator Helper Name Role Phone Unavailable Primary Care Provider Unavailabl e Encounter Details Date Type Department Care Team (Latest Contact Info) Description 01/25/2023 Travel Social History Tobacco Use Types Packs/Day Years Used Date Smoking Tobacco: Never Assessed Comments Yes Sex and Gender Information Value Date Recorded Sex Assigned at Not on file Gender Identity Not on file Sexual Orientation Not on file COVID-19 Exposure Response Date Recorded In the last 10 days, have yo u been in contact with someone who was confirmed or suspected to have Coronavirus/COVID-19? No / Unsure 01/25/2023 2:04 PM CDT documented as of this encounter Plan of Treatment Not on file documented as of this encounter Visit Diagnoses Not on filedocumented in this encounter
--- OUTSIDE RECORDS SUMMARY | 2023-10-20 07:28 | XMS_ITS | Clinical Summary ---
Author Name Unknown Organization [facility] Address [address] [place] [address] Care Team Providers Care Curriculum Development Coordinator Name Role Phone Unavailable Primary Care Provider Unavailabl e Social History Tobacco Use Types Packs/Day Years Used Date Smoking Tobacco: Never Assessed Adolescent Education Answer Date Record ed Getting School Help Needed Not on file 06/04 Sex and Gender Information Value Date Recorded Sex Assigned at Not on file Gender Identity Not on file Sexual Orientation Not on file Plan of Treatment Health Maintenance Due Date Last Done Comments ADVANCE CARE PLANNING 1994 ANNUAL REVIEW OF HM ORDERS 1994 HEPATITIS B IMMUNIZATION (1 of 3 - 3-dose series) 1994 YEARLY PREVENTIVE VISIT 1994 COVID-19 Vaccine (#1) 1994 HIV SCREENING 2009 HEPATITIS C SCREENING 2012 PAP 2015 DTAP/TDAP/TD IMMUNIZATION (1 - Tdap) 2019 INFLUENZA VACCINE (#1) 2023 PHQ-2 (once per calendar year) 2023 HPV IMMUNIZATION Aged Out No longer e ligible based on patient's age to complete this topic IPV IMMUNIZATION Aged Out No longer e ligible based on patient's age to complete this topic MENINGITIS IMMUNIZATION Aged Out No l onger eligible based on patient's age to complete this topic Pneumococcal Vaccine: Pediat rics (0 to 5 Years) and At-Risk Patients (6 to 64 Years) Aged Out No longer eligi ble based on patient's age to complete this topic RSV MONOCLONAL ANTIBODY Aged Out No l onger eligible based on patient's age to complete this topic
--- OUTSIDE RECORDS SUMMARY | 2023-10-20 07:29 | XMS_ITS | Encounter Summary ---
Author Name Unknown Organization [facility] Address [address] [place] [address] Care Team Providers Care Gas Welding Machine Operator Name Role Phone Unavailable Primary Care Provider Unavailabl e Encounter Details Date Type Department Care Team (Latest Contact Info) Description 01/18/2023 Travel Social History Tobacco Use Types Packs/Day [...] suspected to have Coronavirus/COVID-19? No / Unsure 01/18/2023 6:53 PM CDT documented as of this encounter Plan of Treatment Not on file documented as of this encounter Visit Diagnoses Not on filedocumented in this encounter
--- OUTSIDE RECORDS SUMMARY | 2023-10-20 07:29 | XMS_ITS | Encounter Summary ---
Author Name Unknown Organization [place] [facility] Address [address] [facility] [place] [address] Care Team Providers Care Jewel Bearing Maker Name Role Phone Unavailable Primary Care Provider Unavailabl e Reason for Visit * Reason Comments Ultrasound L2-reevaluate left o varian cyst Encounter Details Date Type Department Care Team ([facility] st Contact Info) Description 01/25/2023 2:45 PM CDT Office Visit [facility] [place] [address] [place] [address] Mir Ely MD [address] [place] [address] Ovarian cyst affecting in second trimester, antepartum (Primary Dx) Social History Tobacco Use Types Packs/Day Years [...] PM CDT documented as of this encounter Progress Notes * Mir Ely MD - 01/25/2023 2:45 PM CDT Please see Imaging tab under Chart Review for details of today's US at the [facility]. Mir Ely MD Maternal- Medicine documented in this encounter Nursing Notes * Pallavi Odell, RN - 01/25/2023 2:45 PM CDT Patient presents to [facility] for L2. Denies LOF, vaginal bleeding or cramping/contractions. SBAR given to [facility] MD, see their note in Epic. documented in this encounter Plan of Treatment Not on file documented as of this encounter Visit Diagnoses Diagnosis Ovarian cyst affecting in second trimester, antepartum- Primary documented in this encounter
--- OUTSIDE RECORDS SUMMARY | 2023-10-20 07:29 | XMS_ITS | Encounter Summary ---
Author Name Unknown Organization [facility] Address [address] [place] [address] Care Team Providers Care Batch Maker Name Role Phone Unavailable Primary Care Provider Unavailabl e Reason for Referral * Diagnostic Imaging Ultrasound (Routine) - Pending Review Specialty Diagnoses / Procedures Referred By Patrick gómez Referred To Contact Radiology. Diagnoses Ovarian cyst affecting in second trimester, antepartum Procedures MFM US Comprehensive Single MFM US Comprehensive Single F/U Mir Ely MD [address] [place] [address] Referral ID Status Reason Start Date Expiration Date V isits Requested Visits Authorized [id number] Pending Review 12/28/2022 12/28/2023 1 1 Reason for Visit * Reason Comments Ultrasound 2/3 complete-Left ad renal/ovarian cyst * Consultation (Routine: Next available opening) - Pending Review Specialty Diagnoses / Procedures Referred By Patrick gómez Referred To Contact Diagnoses Ovarian cyst affecting in second trimester, antepartum Elle Seymour MD [address] [place] [address] Referral ID Status Reason Start Date Expiration Date V isits Requested Visits Authorized [id number] Pending Review 12/14/2022 12/14/2023 1 1 Encounter Details Date Type Department Care Team ([facility] st Contact Info) Description 12/28/2022 2:15 PM CDT Office Visit [facility] [place] [address] [place] [address] Elle Seymour MD [address] [place] [address] Mir Ely MD [address] [place] [address] Ovarian cyst affecting in second [...] suspected to have Coronavirus/COVID-19? No / Unsure 12/28/2022 1:16 PM CDT documented as of this encounter Progress Notes * Mir Ely MD - 12/28/2022 2:15 PM CDT [facility] Ultrasound and Consult We discussed the findings on today's ultrasound with the patient. There is 9 cm simple left adnexal cyst seen. There is no solid component, septations, or enhanced blood flow. Adnexal masses/cysts are seen in 2-5% of all pregnancies although the rate of persistent masses/cysts is low at 0.7%. The adnexal mass would have a low risk for malignancy at ~1% given the ultrasound findings as well as size. For simple cysts < 10 cm it is reasonable to follow the cystsize expectantly without surgical removal. There is a 2% risk for cyst rupture in the andpostpartum. There is a 10% risk for ovarian torsion - the risk being highest in the first trimesterand . If the cyst grows in size or there are any concerning features for malignancy seen it can be assessed with MRI in the . We will see the patient again at [facility] in 4 weeks to complete a comprehensive ultrasound and the reassess the ovarian cyst. If the cyst is stable in size or smaller we would recommend that you assess the cyst again at 28 and 34 week. Return to primary provider for continued care.. The patient was seen for an outpatient consultation beyond the performance and interpretation of the ultrasound to discussion management of ovarian masses in . The total time spent in all patient care activities on the day of this visit was 20 minutes. Please see Imaging tab under Chart Review for details of today's US at the [facility] [place]. Mir Ely MD Maternal- Medicine documented in this encounter Nursing Notes * Pallavi Odell, RN - 12/28/2022 2:15 PM CDT Patient presents to [facility] for 2/3 complete US. Denies LOF, vaginal bleeding or cramping/contractions.SBAR given to [facility] MD, see their note in Epic. documented in this encounter Plan of Treatment Not on file documented as of this encounter Results * [facility] US Comprehensive Single (01/25/2023 2:54 PM CDT) Anatomical Region Laterality Modality Ultrasound 01/25/2023 2:06 PM CDT Impressions 01/25/2023 3:10 PM CDT IMPRESSION ----- 1) Sonographic biometry agrees with gestational age predicted by LMP. 2) The anatomy was adequately visualized and appeared normal. 3) None of the anomalies commonly detected by ultrasound were evident. 4) Simple left ovarian cyst seen. No change in size. No enhanced blood flow. Narrative 01/25/2023 3:10 PM CDT Comprehensive ----- Pat. Name: PAMELA PARR Study Date: 01/25/2023 2:06pm Pat. NO: [id number] Referring ??MD: GARY ROWLEY Site: [employer] [employer] Honer: Keturah Quispe RDMS : 1995 Age: 27 ----- INDICATION ----- Large Left Ovarian Cyst. Low risk NIPT. METHOD ----- Transabdominal ultrasound examination. View: Sufficient ----- Orozco . Number of fetuses: 1 DATING ----- ? Date ?Details ?Gest. age ?GAEL LMP ?09/04/2022 ? 20 w + 3 d ? 06/11/2023 Prior assessment ? 11/12/2022 ?GA: 10 w + 2 d ? 20 w + 6 d ? 06/08/2023 U/S ? 01/25/2023 ? based upon AC, BPD, Femur, HC ?21 w + 0 d ? 06/07/2023 Assigned dating ?Dating performed on 12/28/2022, based on the LMP ?20 w + 3 d ? 06/11/2023 GENERAL EVALUATION ----- Cardiac activity present. FHR 139 bpm. movements present. Presentation Variable. Placenta Placental site: posterior. No Previa, > 2 cm from internal os. Umbilical cord 3 vessel cord. Amniotic fluid Amount of AF: normal. MVP 4.9 cm. BIOMETRY ----- Main Biometry: BPD ?49.9 ?mm ? 21w 1d ?Elif SANCHEZ ?63.6 ?mm ? 20w 2d ?Nicolaides HC ?181.4 ?mm ?20w 4d ?Hadlock Cerebellum tr ?22.6 ? mm ?21w 2d ?Nicolaides AC ?165.0 ?mm ?21w 4d ?79% ?Hadlock Femur ?33.8 ? mm ?20w 4d ?Hadlock Humerus ?32.3 ?mm ? 20w 6d ?Jorge Weight Calculation: EFW ? 397 ? g ? 78% ?Hadlock EFW (lb,oz) ? 0 lb 14 ? oz EFW by ?Hadlock ([id number]) Head / Face / Neck Biometry: Coffee Sampler ? 6.2 ? mm CM ?3.8 ? mm Nuchal fold ? 3.8 ? mm ANATOMY ----- The following structures appear normal: Head / Neck ? Cranium. Head size. Head shape. Lateral ventricles. Choroid plexus. Midline falx. Cavum septi pellucidi. Cerebellum. Cisterna magna. ? Parenchyma. Thalami. Vermis. ? Neck. Nuchal fold. Face ? Lips. Profile. Nose. Maxilla. Mandible. Orbits. Lens. Heart / Thorax ?4-chamber view. RVOT view. LVOT view. Situs. Aortic arch view. Bicaval view. Ductal arch view. Superior vena cava. Inferior vena cava. 3-vessel ? view. 2-fmtiim-aaifwjk view. Cardiac position. Cardiac size. Cardiac rhythm. ? Right lung. Left lung. Diaphragm. Abdomen ? Abdominal wall. Cord insertion. Stomach. Kidneys. Bladder. Liver. Bowel. Genitals. Spine ?Cervical spine. Thoracic spine. Lumbar spine. Sacral spine. Extremities / Skeleton ?Right arm. Right hand. Left arm. Left hand. Right leg. Right foot. Left leg. Left foot. Gender: female. MATERNAL STRUCTURES ----- Cervix ?Visualized ? Appearance: Appears Closed ? Cervical length 45.3 mm Right Ovary ?Visualized Left Ovary ?Visualized ? Cyst(s) Size 94 mm x 85 mm x 96 mm. Mean 91.7 mm. Vol 401.621 cm?. Simple cyst RECOMMENDATION ----- We discussed the findings on today's ultrasound with the patient. We recommend that you reassess the ovarian cyst at 28 and 34 weeks. Return to primary provider for continued care. Thank-you for the opportunity to participate in the care of this patient. If you have questions regarding today's evaluation or if we can be of further service, please contact the [facility] Center. anomalies may be present but not detected Procedure Note Mir Ely MD - 01/25/2023 Comprehensive ----- Pat. Name:Stepan PARR Date:01/25/2023 2:06pm Pat. NO: [id number] MD:GARY ROWLEY Site:[facility]ographer:Keturah Quispe RDMS :1995Age:27 ----- INDICATION ----- Large Left Ovarian Cyst. Low risk NIPT. METHOD ----- Transabdominal ultrasound examination. View: Sufficient ----- Orozco . Number of fetuses: 1 DATING ----- DateDetailsGest. age GAEL LMP w + 3 d 06/11/2023 Prior assessment 11/12/2022 GA: 10 w+ 2 d20 w + 6 d 06/08/2023 U/S 3based upon AC, BPD, Femur, HC21 w + 0 d 06/07/2023 Assigned dating Dating performed on 12/28/2022, based onthe LMP 20 w +3 d 06/11/2023 GENERAL EVALUATION ----- Cardiac activity present. FHR 139 bpm. movements present. Presentation Variable. Placenta Placental site: posterior. No Previa, > 2 cm from internal os. Umbilical cord 3 vessel cord. Amniotic fluid Amount of AF: normal. MVP 4.9 cm. BIOMETRY ----- Main Biometry: BPD 49.9 mm21w 1d Hadlock OFD 63.6 mm20w 2d Nicolaides HC 181.4 mm20w 4d Hadlock Cerebellum tr 22.6 mm21w 2d Nicolaides AC 165.0 mm21w 4d 79% Hadlock Femur 33.8 mm20w 4d Hadlock Humerus 32.3 mm20w 6d Jorge Weight Calculation: EFW 397 g78% Hadlock EFW (lb,oz) 0 lb 14 oz EFW by Hadlock ([id number]) Head / Face / Neck Biometry: Coffee Sampler 6.2 mm CM 3.8 mm Nuchal fold 3.8 mm ANATOMY ----- The following structures appear normal: Head / Neck Cranium. Head size. Head shape.Lateral ventricles. Choroid plexus. Midline falx. Cavum septi pellucidi.Cerebellum. Cisterna magna. Parenchyma. Thalami. Vermis. Neck. Nuchal fold. Face Lips. Profile. Nose. Maxilla.Mandible. Orbits. Lens. Heart / Thorax 4-chamber view. RVOT view. LVOT view.Situs. Aortic arch view. Bicaval view. Ductal arch view. Superior venacava. Inferior vena cava. 3-vessel view. 3-fvrcmj-dpschdo view.Cardiac position. Cardiac size. Cardiac rhythm. Right lung. Left lung.Diaphragm. Abdomen Abdominal wall. Cord insertion.Stomach. Kidneys. Bladder. Liver. Bowel. Genitals. Spine Cervical spine. Thoracic spine.Lumbar spine. Sacral spine. Extremities / Skeleton Right arm. Right hand. Left arm. Lefthand. Right leg. Right foot. Left leg. Left foot. Gender: female. MATERNAL STRUCTURES ----- Cervix Visualized Appearance: Appears Closed Cervical length 45.3 mm Right Ovary Visualized Left Ovary Visualized Cyst(s) Size 94 mm x 85 mm x 96mm. Mean 91.7 mm. Vol 401.621 cm?. Simple cyst RECOMMENDATION ----- We discussed the findings on today's ultrasound with the patient. We recommend that you reassess the ovarian cyst at 28 and 34 weeks. Return to primary provider for continued care. Thank-you for the opportunity to participate in the care of this patient.If you have questions regarding today's evaluation or if we can be offurther service, please contact the [facility] Center. anomalies may be present but not detected IMPRESSION ----- 1) Sonographic biometry agrees with gestational age predicted by LMP. 2) The anatomy was adequately visualized and appeared normal. 3) None of the anomalies commonly detected by ultrasound were evident. 4) Simple left ovarian cyst seen. No change in size. No enhanced bloodflow. [facility] documented in this encounter Visit Diagnoses Diagnosis Ovarian cyst affecting in second trimester, antepartum- Primary Ovarian cyst affecting in second trimester, antepartum documented in this encounter
--- OUTSIDE RECORDS SUMMARY | 2023-10-20 07:29 | XMS_ITS | Encounter Summary ---
Author Name Unknown Organization [place] Address [address] [place] [address] Care Team Providers Care Trade Union Official Name Role Phone Unavailable Primary Care Provider Unavailabl e Encounter Details Date Type Department Care Team (Latest Contact Info) Description 12/28/2022 Travel Social History Tobacco Use Types Packs/Day [...]
--- OUTSIDE RECORDS SUMMARY | 2023-10-20 07:29 | XMS_ITS | Encounter Summary ---
Author Name Unknown Organization [place] Address [address] [place] [address] Care Team Providers Care Mass Communications Instructor Name Role Phone Unavailable Primary Care Provider Unavailabl e Encounter Details Date Type Department Care Team (Late st Contact Info) Description 12/13/2022 Transcribe Orders [facility] [place] [address] [facility] [address] [place] [address] Donna Borges MD [facility] [address] [place] [address] Social History Tobacco Use Types Packs/Day Years Used Date Smoking Tobacco: Never Assessed Sex and Gender Information Value Date Recorded Sex Assigned at Not on file Gender Identity Not on file Sexual Orientation Not on file documented as of this encounter Plan of Treatment Not on file documented as of this encounter Visit Diagnoses Not on filedocumented in this encounter
--- OUTSIDE RECORDS SUMMARY | 2023-10-20 07:29 | XMS_ITS | Encounter Summary ---
Author Name Unknown Organization [place] Address [address] [place] [address] Care Team Providers Care Purchasing Administrator Name Role Phone Unavailable Primary Care Provider Unavailabl e Reason for Referral * Diagnostic Imaging Ultrasound (Routine) - Pending Review Specialty Diagnoses / Procedures Referred By Patrick gómez Referred To Contact Radiology. Diagnoses Ovarian cyst affecting in second trimester, antepartum Procedures [facility] US Comprehensive Single [facility] US Comprehensive Single F/U Mir Ely MD [address] [place] [address] Referral ID Status Reason Start Date Expiration Date V isits Requested Visits Authorized [id number] Pending Review 12/28/2022 12/28/2023 1 1 Reason for Visit * Diagnostic Imaging Ultrasound (Routine) - Pending Review Specialty Diagnoses / Procedures Referred By Patrick gómez Referred To Contact Radiology. Diagnoses Ovarian cyst affecting in second trimester, antepartum Procedures [facility] US Comprehensive Single [facility] US Comprehensive Single F/U Mir Ely MD [address] [place] [address] Referral ID Status Reason Start Date Expiration Date V isits Requested Visits Authorized [id number] Pending Review 12/28/2022 12/28/2023 1 1 Encounter Details Date Type Department Care Team (Latest Contact Info) Description 01/25/2023 2:05 PM CDT - 01/25/2023 11:59 PM CDT Hospital Encounter [facility] M[facility] Medicine [facility] [place] [address] [facility] [address] [place] [address] Mir Ely MD [address] [facility] [address] [place] [address] Ovarian cyst affecting in second trimester, antepartum Discharge Disposition: Home or Self Care Social History Tobacco Use Types Packs/Day Years [...] on file documented as of this encounter Procedures Procedure Name Priority Date/Time Associated Diagnosis Comments [facility] US COMPREHENSIVE SINGLE Routine 01/25/2023 2:54 PM CDT Ovarian cyst affecting in second trimester, antepartum documented in this encounter Results * [facility] US Comprehensive Single (01/25/2023 2:54 PM CDT) [...] PARR Study Date: 01/25/2023 2:06pm Pat. NO: [id number] Referring ??MD: GARY ROWLEY Site: [facility] Logistics Program Manager: Keturah Quispe RDMS : 1995 Age: 27 [...] lb 14 ? oz EFW by ?Hadlock ([id number]-[id number]-FL) Head / Face / Neck Biometry: Corporate Concierge ? 6.2 ? mm CM ?3.8 ? [...] cava. Inferior vena cava. 3-vessel ? view. 4-hkyseh-hbcnefi view. Cardiac position. Cardiac size. Cardiac rhythm. [...] Pat. Name:Stepan PARR Date:01/25/2023 2:06pm Pat. NO: [id number] MD:GARY ROWLEY [place]Keturah Quispe RDMS :1995Age:27 ----- INDICATION ----- Large Left Ovarian Cyst. Low risk NIPT. METHOD ----- Transabdominal ultrasound examination. View: Sufficient ----- Orozco . Number of fetuses: 1 DATING ----- DateDetailsGest. age GAEL LMP w + 3 d 06/11/2023 Prior assessment 11/12/2022 GA: 10 w+ 2 d20 w + 6 d 06/08/2023 U/S 01/25/2023ased upon AC, BPD, Femur, HC21 w + [...] 0 lb 14 oz EFW by Hadlock ([id number]-FL) Head / Face / Neck Biometry: Corporate Concierge 6.2 mm CM 3.8 mm Nuchal fold [...] Superior venacava. Inferior vena cava. 3-vessel view. 5-ahpkxc-nkljjpd view.Cardiac position. Cardiac size. Cardiac rhythm. Right [...] change in size. No enhanced bloodflow. Mir Ely MD [facility] US ORDERABL ES documented in this encounter Visit Diagnoses Diagnosis Ovarian cyst affecting in second trimester, antepartum documented in this encounter
--- OUTSIDE RECORDS SUMMARY | 2023-10-20 07:29 | XMS_ITS | Encounter Summary ---
Author Name Unknown Organization [place] Address [address] [place] [address] Care Team Providers Care Accounting Software Specialist Name Role Phone Unavailable Primary Care Provider Unavailabl e Reason for Referral * Consultation (Routine: Next available opening) - Pending Review Specialty Diagnoses / Procedures Referred By Patrick gómez Referred To Contact Diagnoses Ovarian cyst affecting in second trimester, antepartum Elle Seymour MD [address] [address] Referral ID Status Reason Start Date Expiration Date V isits Requested Visits Authorized [id number] Pending Review 12/14/2022 12/14/2023 1 1 Question Answer MFM Consult Yes Comments Radiologic * Diagnostic Imaging Ultrasound (Routine) - Pending Review Specialty Diagnoses / Procedures Referred By Patrick gómez Referred To Contact Radiology. Diagnoses Ovarian cyst affecting in second trimester, antepartum Procedures [facility] US OB Complete 2/3 Tri Single Elle Seymour MD [address] [address] Referral ID Status Reason Start Date Expiration Date V isits Requested Visits Authorized [id number] Pending Review 12/14/2022 12/14/2023 1 1 Encounter Details Date Type Department Care Team ([facility] st Contact Info) Description 12/14/2022 Orders Only [facility] Maternal Medicine Center [place] [address] [place] [phone] Devorah Davis, RN Ovarian cyst affecting in second trimester, antepartum (Primary Dx) Social History Tobacco Use Types Packs/Day Years Used Date Smoking Tobacco: Never Assessed Sex and Gender Information Value Date Recorded Sex Assigned at Not on file Gender Identity Not on file Sexual Orientation Not on file documented as of this encounter Plan of Treatment Scheduled Referrals Name Type Priority Associated Diagnoses Orde r Schedule [facility] Office Visit Referral Routine: Next available opening Ovarian cyst affecting in second trimester, antepartum Expected: 12/14/2022 (Approximate), Expires: 12/15/2023 documented as of this encounter Results * [facility] US OB Complete 2/3 Tri Single (12/28/2022 2:25 PM CDT) Anatomical Region Laterality Modality Ultrasound 12/28/2022 1:30 PM CDT Impressions 12/28/2022 3:00 PM CDT IMPRESSION ----- 1) Sonographic biometry agrees with gestational age predicted by LMP. 2) anatomy appeared normal for gestational age. 3) Simple left adnexal cyst without enhanced blood flow. No ascites seen. Narrative 12/28/2022 3:00 PM CDT / 3rd Trim ----- Pat. Name: PAMELA PARR Study Date: 12/28/2022 1:30pm Pat. NO: [id number] Referring ??MD: GARY ROWLEY Site: [facility] Box Toe Buffer: Daniele Varela RDMS : 1995 Age: 27 ----- INDICATION ----- Large Left Ovarian Cyst. Low risk NIPT. METHOD ----- Transabdominal ultrasound examination. View: Sufficient ----- Orozco . Number of fetuses: 1 DATING ----- ? Date ?Details ?Gest. age ?GAEL LMP ?09/04/2022 ? 16 w + 3 d ? 06/11/2023 Prior assessment ? 11/12/2022 ?GA: 10 w + 2 d ? 16 w + 6 d ? 06/08/2023 U/S ? 12/28/2022 ? based upon AC, BPD, Femur, HC ?16 w + 4 d ? 06/10/2023 Assigned dating ?Dating performed on 12/28/2022, based on the LMP ?16 w + 3 d ? 06/11/2023 GENERAL EVALUATION ----- Cardiac activity present. FHR 150 bpm. movements visualized. Presentation cephalic. Placenta Posterior, No Previa, > 2 cm from internal os. Umbilical cord 3 vessel cord. Amniotic fluid Amount of AF: normal. MVP 5.1 cm. BIOMETRY ----- Main Biometry: BPD ?36.9 ?mm ? 17w 2d ?Hadlock OFD ?46.2 ?mm ? 16w 0d ?Nicolaides HC ?132.4 ?mm ?16w 6d ?Hadlock Cerebellum tr ?16.3 ? mm ?16w 2d ?Nicolaides AC ?108.6 ?mm ?16w 5d ?62% ?Hadlock Femur ?18.5 ? mm ?15w 3d ?Hadlock Weight Calculation: EFW ? 149 ? g ? 29% ?Hadlock EFW (lb,oz) ? 0 lb 5 ?oz EFW by ?[facility] ([id number]-FL) Head / Face / Neck Biometry: Protection Analyst ? 5.4 ? mm CM ?2.7 ? mm Nasal bone ? 4.6 ? mm Nuchal fold ? 3.7 ? mm ANATOMY ----- The following structures appear normal: Head / Neck ? Cranium. Head size. Head shape. Lateral ventricles. Choroid plexus. Midline falx. Cavum septi pellucidi. Cerebellum. Cisterna magna. ? Parenchyma. Thalami. ? Nuchal fold. Face ? Lips. Profile. Nose. Lens. Heart / Thorax ?4-chamber view. RVOT view. LVOT view. Situs. Aortic arch view. Bicaval view. Ductal arch view. Superior vena cava. Inferior vena cava. 3-vessel ? view. 4-afynop-zngfeew view. Cardiac position. Cardiac size. Cardiac rhythm. ? Right lung. Left lung. Diaphragm. Abdomen ? Abdominal wall. Cord insertion. Stomach. Kidneys. Bladder. Liver. Bowel. Genitals. Spine ?Cervical spine. Thoracic spine. Lumbar spine. Sacral spine. Extremities / Skeleton ?Right arm. Right hand. Left arm. Left hand. Right leg. Right foot. Left leg. Left foot. MATERNAL STRUCTURES ----- Cervix ?Visualized ? Appearance: normal ? Approach - Transabdominal: Cervical length 47.8 mm Right Ovary ?Visualized Left Ovary ?Visualized ? Cyst(s) Size 90 mm x 74 mm x 84 mm. Mean 82.7 mm. Vol 292.922 cm?. Simple cyst RECOMMENDATION ----- We discussed [...] have a low risk for malignancy at 1% given the ultrasound findings as well as size. For simple cysts < 10 cm it is reasonable to follow the cyst size expectantly without surgical removal. There is a 2% risk for cyst rupture in the and . There is a 10% risk for ovarian torsion - the risk being highest in the first trimester and . If the cyst grows in size or there are any concerning features for malignancy seen it can be assessed with MRI in the . We will see the patient again at [facility] in 4 weeks to complete a [...] day of this visit was 20 minutes. Procedure Note Mir Ely MD - 12/28/2022 / Trim ----- Pat. Name:Stepan PARR Date:12/28/2022 1:30pm Pat. NO: [id number] MD:GARY ROWLEY [facility] Vare[facility] RDMS :1995Age:27 ----- INDICATION ----- Large Left Ovarian Cyst. Low risk NIPT. METHOD ----- Transabdominal ultrasound examination. View: Sufficient ----- Orozco . Number of fetuses: 1 DATING ----- DateDetailsGest. age GAEL LMP w + 3 d 06/11/2023 Prior assessment 11/12/2022 GA: 10 w+ 2 d16 w + 6 d 06/08/2023 U/S 12/28/2022ased upon AC, BPD, Femur, HC16 w + 4 d 06/10/2023 Assigned dating Dating performed on 12/28/2022, based onthe LMP 16 w +3 d 06/11/2023 GENERAL EVALUATION ----- Cardiac activity present. FHR 150 bpm. movements visualized. Presentation cephalic. Placenta Posterior, No Previa, > 2 cm from internal os. Umbilical cord 3 vessel cord. Amniotic fluid Amount of AF: normal. MVP 5.1 cm. BIOMETRY ----- Main Biometry: BPD 36.9 mm17w 2d Hadlock OFD 46.2 mm16w 0d Nicolaides HC 132.4 mm16w 6d Hadlock Cerebellum tr 16.3 mm16w 2d Nicolaides AC 108.6 mm16w 5d 62% Hadlock Femur 18.5 mm15w 3d Hadlock Weight Calculation: EFW 149 g29% Hadlock EFW (lb,oz) 0 lb 5 oz EFW by Hadlock ([id number]-FL) Head / Face / Neck Biometry: Protection Analyst 5.4 mm CM 2.7 mm Nasal bone 4.6 mm Nuchal fold 3.7 mm ANATOMY ----- The following structures appear normal: Head / Neck Cranium. Head size. Head shape.Lateral ventricles. Choroid plexus. Midline falx. Cavum septi pellucidi.Cerebellum. Cisterna magna. Parenchyma. Thalami. Nuchal fold. Face Lips. Profile. Nose. Lens. Heart / Thorax 4-chamber view. RVOT view. LVOT view.Situs. Aortic arch view. Bicaval view. Ductal arch view. Superior venacava. Inferior vena cava. 3-vessel view. 3-qmjros-mkjrlcz view.Cardiac position. Cardiac size. Cardiac rhythm. Right lung. Left lung.Diaphragm. Abdomen Abdominal wall. Cord insertion.Stomach. Kidneys. Bladder. Liver. Bowel. Genitals. Spine Cervical spine. Thoracic spine.Lumbar spine. Sacral spine. Extremities / Skeleton Right arm. Right hand. Left arm. Lefthand. Right leg. Right foot. Left leg. Left foot. MATERNAL STRUCTURES ----- Cervix Visualized Appearance: normal Approach - Transabdominal:Cervical length 47.8 mm Right Ovary Visualized Left Ovary Visualized Cyst(s) Size 90 mm x 74 mm x 84mm. Mean 82.7 mm. Vol 292.922 cm?. Simple cyst RECOMMENDATION ----- We discussed the findings on today's ultrasound with the patient. There is 9 cm simple left adnexal cyst seen. There is no solid component,septations, or enhanced blood flow. Adnexal masses/cysts are seen in 2-5%of all pregnancies although the rate of persistent masses/cysts is low at 0.7%. The adnexalmass would have a low risk for malignancy at 1% given the ultrasound findings as well as size. For simple cysts < 10 cm it is reasonable to follow the cyst sizeexpectantly without surgical removal. There is a 2% risk for cyst rupturein the and . There is a 10% risk for ovarian torsion - the risk being highest in thefirst trimester and . If the cyst grows in size or there are anyconcerning features for malignancy seen it can be assessed with MRI in the . We will see the patient again at [facility] in 4 weeks to complete acomprehensive ultrasound and the reassess the ovarian cyst. If the cyst isstable in size or smaller we would recommend that you assess the cyst again at 28 and 34 week. Return to primary provider for continued care.. The patient was seen for an outpatient consultation beyond the performanceand interpretation of the ultrasound to discussion management of ovarianmasses in . The total time spent in all patient care activities on the dayof this visit was 20 minutes. IMPRESSION ----- 1) Sonographic biometry agrees with gestational age predicted by LMP. 2) anatomy appeared normal for gestational age. 3) Simple left adnexal cyst without enhanced blood flow. No ascitesseen. Elle Seymour MD [facility] US ORDERABLE S documented in this encounter Visit Diagnoses Diagnosis Ovarian cyst affecting in second trimester, antepartum- Primary Ovarian cyst affecting in second trimester, antepartum documented in this encounter
--- OUTSIDE RECORDS SUMMARY | 2023-10-20 07:29 | XMS_ITS | Encounter Summary ---
Author Name Unknown Organization [place] Address [address] [place] [address] Care Team Providers Care Maintenance And Engineering Manager Name Role Phone Unavailable Primary Care Provider Unavailabl e Encounter Details Date Type Department Care Team (Latest Contact Info) Description 12/22/2022 Travel Social History Tobacco Use Types Packs/Day [...]
--- OUTSIDE RECORDS SUMMARY | 2023-10-20 07:29 | XMS_ITS | Encounter Summary ---
Author Name Unknown Organization [place] Address [address] [place] [address] Care Team Providers Care Communications Attendant Name Role Phone Unavailable Primary Care Provider Unavailabl e Reason for Visit * Reason Comments Ultrasound 2/3 complete-left ad nexal/ovarian cyst Consult MFM consult-left adn exal/ovarian cyst Encounter Details Date Type Department Care Team ([facility] st Contact Info) Description 12/21/2022 PRE VISIT [facility] M[facility] Medicine [facility] [place] [address] [facility] [address] [place] [address] Pallavi Odell, LIAM Ultrasound (2/3 complete-left adnexal/ovarian cyst); Consult ([facility] consult-left adnexal/ovarian cyst) Social History Tobacco Use Types Packs/Day Years [...]
--- OUTSIDE RECORDS SUMMARY | 2023-10-20 07:29 | XMS_ITS | Encounter Summary ---
Author Name Unknown Organization [place] Address [address] [place] [address] Care Team Providers Care Chief Clerk Shelter Name Role Phone Unavailable Primary Care Provider Unavailabl e Reason for Referral * Diagnostic Imaging Ultrasound (Routine) - Pending Review Specialty Diagnoses / Procedures Referred By Patrick gómez Referred To Contact Radiology. Diagnoses Ovarian cyst affecting in second trimester, antepartum Procedures MFM US OB Complete 2/3 Tri Elle Kowalski MD [address] [facility] [address] [place] [address] Referral ID Status Reason Start Date Expiration Date V isits Requested Visits Authorized [id number] Pending Review 12/14/2022 12/14/2023 1 1 Reason for Visit * Diagnostic Imaging Ultrasound (Routine) - Pending Review Specialty Diagnoses / Procedures Referred By Patrick gómez Referred To Contact Radiology. Diagnoses Ovarian cyst affecting in second trimester, antepartum Procedures MFM US OB Complete 2/3 Tri Elle Kowalski MD [address] [place] [address] Referral ID Status Reason Start Date Expiration Date V isits Requested Visits Authorized [id number] Pending Review 12/14/2022 12/14/2023 1 1 Encounter Details Date Type Department Care Team (Latest Contact Info) Description 12/28/2022 1:19 PM CDT - 12/28/2022 11:59 PM CDT Hospital Encounter [facility] Maternal Medicine [facility] [address] [facility] [address] [place] [address] Elle Seymour MD [address] [place] [address] Mir Ely MD [address] [place] [address] Ovarian cyst affecting in second [...] Procedure Name Priority Date/Time Associated Diagnosis Comments MFM US OB COMPLETE 2/3 TRI SINGLE Routine 12/28/2022 2:25 PM CDT Ovarian cyst affecting in second trimester, antepartum documented in this encounter Results * MFM US OB Complete 2/3 Tri Single (12/28/2022 2:25 PM CDT) Anatomical Region Laterality Modality Ultrasound 12/28/2022 1:30 PM CDT Impressions 12/28/2022 3:00 PM CDT IMPRESSION ----- 1) Sonographic biometry agrees with gestational age predicted by LMP. 2) anatomy appeared normal for gestational age. 3) Simple left adnexal cyst without enhanced blood flow. No ascites seen. Narrative 12/28/2022 3:00 PM CDT Trim ----- Pat. Name: PAMELA PARR Study Date: 12/28/2022 1:30pm Pat. NO: [id number] Referring ??MD: GARY ROWLEY Site: [facility] Supervisor Cutting And Sewing Room: Daniele Varela RDMS : 1995 Age: 27 [...] Biometry: BPD ?36.9 ?mm ? 17w 2d ?Elif SANCHEZ ?46.2 ?mm ? 16w 0d ?Nicolaides HC ?132.4 ?mm ?16w 6d ?Hadlock Cerebellum tr ?16.3 ? mm ?16w 2d ?Nicolaides AC ?108.6 ?mm ?16w 5d ?62% ?Hadlock Femur ?18.5 ? mm ?15w 3d ?Hadlock Weight Calculation: EFW ? 149 ? g ? 29% ?Hadlock EFW (lb,oz) ? 0 lb 5 ?oz EFW by ?Hadlock (OPO-[id number]-FL) Head / Face / Neck Biometry: Innovation Analyst ? 5.4 ? mm CM ?2.7 [...] cava. Inferior vena cava. 3-vessel ? view. 7-ejfdvl-onnapid view. Cardiac position. Cardiac size. Cardiac rhythm. [...] We will see the patient again at [facility] in 4 weeks to complete a [...] Procedure Note Mir Ely MD - 12/28/2022 2nd / 3rd Trim ----- Pat. Name:MYLES PARRHStudemiliano Date:12/28/2022 1:30pm Pat. NO: [id number] :GARY ROWLEY [facility]Daniele Varela RDMS :1995Age:27 ----- INDICATION ----- Large [...] 0 lb 5 oz EFW by Hadlock ([id number]-FL) Head / Face / Neck Biometry: Innovation Analyst 5.4 mm CM 2.7 mm Nasal [...] Superior venacava. Inferior vena cava. 3-vessel view. 9-soniqe-vnarnch view.Cardiac position. Cardiac size. Cardiac rhythm. Right [...] We will see the patient again at [facility] in 4 weeks to complete acomprehensive [...] blood flow. No ascitesseen. Elle Seymour MD IM [facility] US ORDERABLE S documented in this encounter Visit Diagnoses Diagnosis Ovarian cyst affecting in second trimester, antepartum documented in this encounter
--- OUTSIDE RECORDS SUMMARY | 2023-10-20 07:29 | XMS_ITS | Encounter Summary ---
Author Name Unknown Organization [place] Address [address] [place] [address]. [place] [address] Care Team Providers Care Supervisor Assembly Name Role Phone Unavailable Primary Care Provider Unavailabl e Encounter Details Date Type Department Care Team (Latest Contact Info) Description 12/10/2022 Medical Correspondence [facility] [address] [place] [address] Outside, Provider [facility] PROVIDER SERVICE REQUEST- OUTPATIENT Social History Tobacco Use Types Packs/Day Years [...]
[2023-10-20] MEDS: SODIUM CHLORIDE 0.9 % (FLUSH) 10 ML SYRINGE IVF (07:50)
[2023-10-20] MEDS: LACTATED RINGERS 1000 ML 1,000 ML 100 ML IV (07:50)
[2023-10-20 08:02] LABS: Hemoglobin* 11.9 gm/dL (12.0-16.0)
[2023-10-20 08:09] LABS: Ur HCG Qualitative* Negative (Negative)
--- NOTE | 2023-10-20 08:35 | W.PM.H&PU ---
History & Physical Update History & Physical Update H&P Reviewed and patient assessed: No changes noted
--- NOTE | 2023-10-20 08:35 | PM.GYNPRLA ---
Procedure Pre-op/Post-op diagnoses: Pre-Op/Post-Op Diagnoses Operation Date: 10/20/23 09:00 <No data on this case meets the specified criteria> Procedure: Procedures Operation Date: 10/20/23 09:00 Diagnostic laparoscopy, left paratubal cystectomy, and left salpingectomy After School Program Assistant: Haley Flower Estimated blood loss (mL): 20 Anesthesia type: General Complications: none Specimen: other (Left paratubal cyst and left fallopian tube ) Narrative: Preoperative diagnosis: 28-year-old G1G1 with approximately 11 cm left adnexal cyst. Postoperative diagnosis: 11 cm left paratubal cyst. Procedure: Diagnostic laparoscopy, left paratubal cystectomy, and left salpingectomy Anesthesia: General endotracheal, Local Surgeon: Ashley Bass MD EBL: 20 mL Urine output: 600 mL clear urine IVF: 800 ml Specimen: Left paratubal cyst and fallopian tube Findings: On exam under anesthesia: Normal external genitalia. The uterus was anterior, 6 week size, mobile, without masses or nodularity palpable. Adnexal mass palpable vaginally, mobile. On laparoscopy: Liver normal appearing. The uterus, right fallopian tube, and right ovary were normal. Left ovary was normal. 11 cm paratubal cyst that included the majority of left fallopian tube. Torsion of the paratubal cyst around the left fallopian tube was noted. Cyst was simple and well circumscribed. Procedure: Patient was taken to the operating room where general anesthetic was found to be adequate. She was placed in the dorsal lithotomy position and an exam under anesthesia was performed with findings stated above. She was then prepped and draped in a normal sterile manner. Mitchell catheter placed to empty her bladder. Sponge stick was placed vaginally to act as uterine manipulator. Attention was then turned to performing the laparoscopic portion of the procedure. All incisions were injected with 1% lidocaine prior to incision. A vertical 5 mm infraumbilical incision was made with a scalpel and carried through to the underlying layer of fascia with a hemostat. The 5 mm Fios Kii trocar was assembled with laparoscope within, and insufflator attached. While tenting up the abdomen manually, the trocar was passed through the anterior abdominal wall into the peritoneal cavity. Trocar was removed. Pneumoperitoneum was achieved. Survey of abdomen and pelvis revealed the above-noted findings.Two left trocars were placed under direct visualization. One was placed 3-4 finger breaths medial to the ischial crests and (11 mm) a 2nd was placed hands breath medial and 3 cm superior to lower quadrant port (5mm). A diagnostic laparoscopy was then performed with findings stated above. Ligasure was used to used to dissect left fallopian tube tissue off the paratubal cyst. Paratubal cyst was removed intact. Decision was made to perform left salpingectomy due to extensive damage from paratubal cyst and decreased risk of ectopic in that abnormal tube in the future. Left tube removed through left lower quadrant port. Paratubal cyst was placed into the spleen bag and removed intact through umbilical port. Excellent hemostasis was noted of all pedicles. The trocars were then removed under direct visualization. The CO2 gas was allowed to escape the infraumbilical port prior to its removal. Fascial at the 11mm LLQ port was closed with 0-vicryl in running continuous fashion. The skin was reapproximated with 4-0 monocryl. Two other incisions were reapproximated using 4-0 Monocryl in a running subcuticular manner. Exofin was applied at the port sites. The Mitchell cath and uterine manipulator was removed from the vagina. The patient tolerated this procedure well. Sponge, lap and instrument counts were correct x2 at the end of the procedure and the patient was taken to the recovery area in stable condition.
[2023-10-20] MEDS: BUPIVACAINE 0.5 %/EPI 1:200K 30 ML INJECTION (11:00)
--- NOTE | 2023-10-20 11:38 | W.ANESCHARGE ---
Anesthesia Charges Start Date/Time Anesthesia Start Date: 10/20/23 Anesthesia Start Time: 09:49 Stop Date/Time Anesthesia Stop Date: 10/20/23 Anesthesia Stop Time: 11:31
== END 2023-10-20 13:54 | disposition home or self-care (01) ==
PROVIDERS: Nurse Anesthetist, Certified Registered; Visit Provider Obstetrics & Gynecology
PROC: (CPT 58662; principal; 2023-10-20 08:45)
DX: D28.2 Benign neoplasm of uterine tubes and ligaments (principal); N83.8 Other noninflammatory disorders of ovary, fallopian tube and broad ligament
CPT/HCPCS: 58662; 58661; 00840; 36415; 81025; 85018; 86850; 86900; 86901; 88305; 88307; J0330; J1100; J1200; J1630; J1885; J2405; J2704; J3010; J3475; J3490; J7120

== ENCOUNTER 2024-11-27 13:50 | Outpatient (CLI) | payer OTHER, SELFPAY ==
--- NOTE | 2024-11-27 14:00 | CRLHL7_ITS ---
For Patients: As a result of the Cures Act, medical imaging exams and procedure reports are released immediately into your electronic medical record. You may view this report before your referring provider. If you have questions, please contact your health care provider. OBSTETRICAL ULTRASOUND, 11/27/2024 CLINICAL INDICATION: Dating. LMP: 09/29/2024 GAEL by LMP: 07/06/2025 Gestational age: 8 weeks 3 days Previous ultrasound: No TECHNIQUE: Real-time saravia-scale imaging of the fetus was performed transvaginal. FINDINGS: CRL: 2.2 cm, 8 weeks 6 days; GAEL 07/03/2025 heart rate: 176 BPM Gestational sac: 4.5 cm, appears within normal limits Yolk sac: 3.3 mm, appears within normal limits Right ovary: 2.6 x 1.4 x 1.7 cm Left ovary: 3.1 x 2.3 x 2.5 cm, CL IMPRESSION: Single living intrauterine with sonographic gestational age of 8 weeks 6 days and sonographic due date of 07/03/2025. BRANDO SPARKS M.D. Diagnostic Radiologist [email or web address] Transcribed: 4:[address]/Dictated by: Brando Sparks MD @ 11/27/2024 2:36:00 PM (Electronically Signed)
== END 2024-11-27 13:51 | disposition home or self-care (01) ==
LOC: US 13:50
PROVIDERS: Visit Provider Physician Assistant
DX: Z34.91 Encounter for supervision of normal pregnancy, unspecified, first trimester (principal); Z3A.08 8 weeks gestation of pregnancy
CPT/HCPCS: 76817

== ENCOUNTER 2024-11-27 14:46 | Outpatient (CLI) | payer OTHER, SELFPAY ==
[2024-11-27 20:15] LABS: Chlamydia DNA Amplified* NOT DETECTED (No Detected); GC DNA Amplified* NOT DETECTED (No Detected)
== END 2024-11-27 14:47 | disposition home or self-care (01) ==
PROVIDERS: Visit Provider Physician Assistant
DX: Z34.81 Encounter for supervision of other normal pregnancy, first trimester (principal); Z67.20 Type B blood, Rh positive
CPT/HCPCS: 83020; 83021; 85660; 86592; 86703; 86704; 86706; 86762; 86787; 86803; 86850; 86900; 86901; 87086; 87340; 87491; 87591

== ENCOUNTER 2025-02-21 12:05 | Outpatient (CLI) | payer OTHER, SELFPAY ==
--- NOTE | 2025-02-21 12:15 | CRLHL7_ITS ---
For Patients: As a result of the 21st Century Cures Act, medical imaging exams and procedure reports are released immediately into your electronic medical record. You may view this report before your referring provider. If you have questions, please contact your health care provider. LMP: 09/29/2024. GAEL by LMP: 07/06/2025. GA: 20w, 5d. INDICATION: anatomy scan. TECHNIQUE: Transabdominal obstetric images were obtained. CERVIX: Visualized. Measurement: 4.9. POSITIONING: Vertex, breech, oblique, transverse, multiple positions. Head to maternal right. AMNIOTIC FLUID: 5.4 cm SDP. PLACENTA: PLACENTA POSITION: Fundal posterior. Placenta tip to internal os: 3.2 cm. Placental insertion: Central. DOPPLER: heart rate: 142 bpm. Biometry: BPD: 5.0 cm. 21w, 2d, 70 percent. HC: 18.3 cm. 20w, 5d, 38 percent. AC: 15.7 cm. 20w, 6d, 47 percent. FL: 3.3 cm. 20w, 3d, 30 percent. FL/AC ratio: 21.21 percent. HC/AC ratio: 1.17. EFW: 367.48 g. Weight: 0 lbs, 13 oz. age by this US: 20w, 6d. GAEL by this US: 07/05/2025. Percentile by GAEL: 41 percent. SURVEY: Observed Structures Cerebellum: Yes. 2.1 cm; 21w 3d. Cisterna Magna: Yes. 2.7 mm. Nuchal Fold: Yes. 4.1 mm. Lateral Ventricle: Yes. 5.5 mm. CSP: Yes. Midline Falx: Yes. Choroid Plexus: Yes. Spine: Yes. Stomach: Yes. Abd Cord Insertion: Yes. Urinary Bladder: Yes. Kidneys: Yes. Diaphragm: Yes. Nose/lips: Yes. Orbital view: Yes. Profile: Yes. Upper Extremities: Yes. Lower Extremities: Yes. Hands: Yes. Feet: Yes. Four-Chamber Heart: Yes. LVOT: Yes. RVOT: Yes. 3VV: Yes. 3VTV: Yes. IMPRESSION: 1. Echogenic focus in the stomach, see series 1, image 650. Remainder of the anatomic survey normal. Level 2 ultrasound should be considered. 2. Concordance of clinical and sonographic dating. Brando Samano M.D. Diagnostic Radiologist [email or web address] bM/Dictated by: Brando Samano MD @ 02/21/2025 4:18:00 PM (Electronically Signed)
== END 2025-02-21 12:06 | disposition home or self-care (01) ==
LOC: US 12:06
PROVIDERS: Visit Provider Obstetrics & Gynecology
DX: Z34.92 Encounter for supervision of normal pregnancy, unspecified, second trimester (principal); Z3A.20 20 weeks gestation of pregnancy
CPT/HCPCS: 76805

== ENCOUNTER 2025-03-13 10:52 | Outpatient (CLI) | payer OTHER, SELFPAY | END 2025-03-13 10:53 | disposition home or self-care (01) | LOC: US 10:53 | PROVIDERS: Visit Provider Obstetrics & Gynecology | DX: O35.DXX0 Maternal care for other (suspected) fetal abnormality and damage, fetal gastrointestinal anomalies, not applicable or unspecified (principal); Z14.1 Cystic fibrosis carrier; Z3A.23 23 weeks gestation of pregnancy | CPT/HCPCS: 76811 ==

== ENCOUNTER 2025-04-19 10:32 | Outpatient (CLI) | payer OTHER, SELFPAY | END 2025-04-19 10:33 | disposition home or self-care (01) | LOC: NFLDREF 04-24 14:27 | PROVIDERS: Visit Provider Obstetrics & Gynecology | DX: Z34.93 Encounter for supervision of normal pregnancy, unspecified, third trimester (principal); Z3A.28 28 weeks gestation of pregnancy | CPT/HCPCS: 86592 ==

== ENCOUNTER 2025-05-30 10:08 | Outpatient (CLI) | payer OTHER, SELFPAY | END 2025-05-30 10:09 | disposition home or self-care (01) | LOC: NFLDREF 06-05 10:27 | PROVIDERS: Visit Provider Obstetrics & Gynecology | DX: Z34.90 Encounter for supervision of normal pregnancy, unspecified, unspecified trimester (principal) | CPT/HCPCS: 82728 ==

== ENCOUNTER 2025-06-12 13:36 | Outpatient (CLI) | payer OTHER, SELFPAY ==
[2025-06-13 18:53] LABS: Strep B DNA Probe Negative (Negative)
[2025-06-13 21:20] LABS: Strep B Susceptibility Needed? No
== END 2025-06-12 13:37 | disposition home or self-care (01) ==
LOC: NFLDREF 13:36
PROVIDERS: Visit Provider Obstetrics & Gynecology
DX: Z34.93 Encounter for supervision of normal pregnancy, unspecified, third trimester (principal)
CPT/HCPCS: 87081; 87653

== ENCOUNTER 2025-07-10 11:30 | Inpatient (IN) | payer OTHER, SELFPAY ==
[2025-07-10] VITALS (47 sets, daily range): BP systolic 84–143; BP diastolic 51–88; PULSE 65–123; RESP 16; TEMP 36.4–36.8; O2SAT 84–100; BMI 26.4
[2025-07-10 11:39] LABS: Trichomonas No Trichomonas Seen (None Seen)
--- NOTE | 2025-07-10 12:05 | PM.OBHPLI ---
OB - H&P: HPI Labor/Induction History of Present Illness Date Seen: 07/10/25 Chief complaint: Maternity Narrative: The patient is a 30 year old 2 para 1 at 40 weeks gestation by LMP, who presents with small volume vaginal bleeding. is complicated by history of gestational hypertension, CF carrier (FOB negative, low risk [place]). Her complete history and physical was documented by Dr. Bass on 06/20, please see this for complete details. Pamela was scheduled for an elective induction of labor this afternoon. She called this morning, noting new small volume pink to red discharge starting at 0100. She notes this has become more read through time, but is still of small volume - saturating about a half dollar size of her undergarments in several hours. She notes that it is a little more thin than her baseline discharge, but is clear and consistent that she does not feel like she has had watery leaking. No persisting gushing or large volume leaking events. Denies abnormal vaginal discharge, vulvovaginal itching or burning. She denies any regular/painful contractions. Endorses active movement. Specific Issues/Plans Partner: Ken Girl: undecided on name H&P: Dr. 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 Specifically, no echogenic areas were noted within the stomach or bowel. Growth parameters and estimated weight were consistent with gestational age predicted by assigned GAEL. The amniotic fluid volume appeared normal. On transabdominal imaging the cervix appeared long and closed. Vaccinations: COVID: Declined 01/24/2025 Flu: declines Tdap: 05/02 RSV: 05/30/25 Hep B booster: 01/24/2025 32 week mental health: 05/17/25 GBS negative Last pap: 11/12/22 Meds Home Medications and Allergies Home Medications ?Medication ?Instructions ?Recorded ?Confirmed ?Type docosahexaenoic acid 200 mg 200 mg PO DAILY 11/27/24 07/10/25 History capsule ( DHA) ferrous sulfate 325 mg (65 mg 325 mg PO QMWF #30 tabs 04/19/25 07/10/25 Rx iron) tablet magnesium glycinate mg PO DAILY 05/02/25 07/08/25 History Allergies Allergy/AdvReac Type Severity Reaction Status Date / Time No Known Drug Allergies Allergy Verified 07/10/25 10:46 OB - H&P: Exam Physical Exam: Vital signs: Pulse BP Pulse Ox 75 124/69 100 07/10/25 10:39 07/10/25 10:39 07/10/25 10:36 Narrative: Vital signs within normal limits. General: Alert and oriented, no acute distress Psych: Appropriate mood and affect Abdomen: Gravid. Soft, nontender. Cervix: 2/50/-2 by RN exam, bright red blood mixed with discharge on glove. Pad inspected where there is about a 1x4cm area of similar bleeding/discharge on pad. Nonwatery, dry perineum. NST: Reactive. Baseline 130bpm, moderate variability, several qualifying 15x15 accelerations seen, no decelerations. [place]: Irregular contractions Wet prep, negative. Patient reported passing a small blood clot (approx 10cc in size) in the toilet. I returned to the bedside. Speculum: External genital exam within normal limits. Speculum inserted, vaginal mucosa is pink and well rugated. Cervix visualized, cervical mucus noted and is blood tinged. No apparent etiology for bleeding. No active bleeding from cervical os/uterus. Cervix: 2/50/-1, unable to palpate bag of water. When vertex is gently elevated in an attempt to either elicit leaking or fluids or palpate BOW, I am unable to do either. Question palpation of digits laterally. TAUS confirms vertex presentation with hand near the side of the head. Normal MVP of >2cm in LUQ. OB - Problem Based A/P Additional Plan (1) Vaginal bleeding during : Status: Acute (2) 40 weeks gestation of : Status: Acute Plan The patient is a 30 year old 2 para 1 at 40 weeks gestation by LMP, who presents with small volume vaginal bleeding. is complicated by history of gestational hypertension, CF carrier (FOB negative, low risk [place]). Her complete history and physical was documented by Dr. Bass on 06/20, please see this for complete details. Pamela reports new onset of small volume bleeding vs bloody show since 99. Color has become more bright red in nature through time, where on exam this is largely consistent with bloody show though color is bright red. No evidence of ROM by patient report, dry perineum and consistency of blood-stained discharge. Wet prep obtained and sent, negative. My clinical suspicion for placental abruption is quite low, as patient is not having any constant pain, regular/painful contractions and status is entirely reassuring. She had a normal FAS, with a fundal placenta with no previa/low-lying. Still, given that patient is term with new bleeding that is slightly increased from that anticipated of bloody show - I would recommend admission for IOL. She was previously scheduled or elective IOL this afternoon. Cervix is 2/50/-1 on admission, unable to palpate BOW or elicit leakage with slight elevation of head. Question if I can palpate digits laterally, where I am somewhat suspicious for SROM which could further support early labor as a potential etiology for small volume bleeding. Amnisure unlikely to be reliable given prior exams and bleeding. Normal MVP in LUQ noted on bedside US. Given questionable status of BOW, plan to start IOL with pitocin. Continuous monitoring ongoing. Patient understands that status were to be nonreassuring with persistent bleeding, we would have a low threshold to consider primary delivery for possible abruption. At this time, my clinical suspicion is overall low given the absence of pain/contractions and entirely reassuring status. Admission T/S, CBC and coags were obtained and found to be within normal limits. BT B+, GBS negative.
[2025-07-10 12:28] LABS: Hematocrit* 32.3 % (33.0-51.0); Hemoglobin* 10.5 gm/dL (12.0-16.0); Immature Granulocytes Abs Auto 0.03 K/uL (0.00-0.30); Immature Granulocytes Pct Auto 0.3 %; Mean Corpuscular HGB Conc 33 gm/dL (32-36); Mean Corpuscular Hemoglobin 30 pg (26-34); Mean Corpuscular Volume 92 fL (80-100); RDW Coefficient of Variation % 15.0 % (11.5-15.5); Red Blood Count* 3.53 m/uL (4.00-5.20); White Blood Count* 9.91 K/uL (4.50-11.00)
[2025-07-10 12:37] LABS: Lymphocytes Absolute Auto 1.30 K/uL (0.90-2.90)
[2025-07-10 12:38] LABS: Slide Review Reflex No
[2025-07-10 12:53] LABS: INR 0.86 (0.91-1.10); Prothrombin Time 12.5 Seconds
[2025-07-10] MEDS: OXYTOCIN 30 unit/500 ML in NS 30 UNIT/500 ML BAG IVPB (14:39)
[2025-07-10] MEDS: LACTATED RINGERS 1000 ML 1,000 ML 125 ML IV (14:39)
[2025-07-10] MEDS: LACTATED RINGERS 1000 ML 1,000 ML 900 ML IV (19:59)
[2025-07-10] MEDS: LIDOCAINE 2% (PF) 5 ML VIAL EPIDURAL (20:23)
[2025-07-10] MEDS: ROPIVACAINE 0.2% 100 ml 100 ML 12 MG EPIDURAL (20:23)
[2025-07-10] MEDS: PHENYLEPHRINE 100 MCG/ML SYRINGE IVP ×3 (20:32→20:46)
--- NOTE | 2025-07-10 20:40 | PM.OBPNL ---
Subjective Date Seen: 07/10/25 Narrative: Pamela is a 30 year old 2 para 1 at 4024d GA by LMP ongoing IOL in the setting of small volume vaginal bleeding at term. is complicated by history of gestational hypertension, CF carrier (FOB negative, low risk [place]). Pamela notes significant increase in her labor pain, where she requested and received epidural. She is now resting comfortably. She has not had any significant bleeding in the last several hours, nursing report describes it as anticipated bloody show. She has not noticed leaking of fluid. Endorses active movement. Objective Exam: General: Alert and oriented, no acute distress Psych: Appropriate mood and affect Abdomen: Gravid. Soft, nontender. Cervix: 5/90/-1. AROM performed with return of clear fluid. Pad inspected small volume bloody show noted. FHR: Category 1. Baseline 130bpm, moderate variability, several qualifying 15x15 accelerations seen, no decelerations. [place]: Contractions q2m. Pitocin at 12mu/min. Vital Signs: Last Vital Signs Temp 97.6 F 07/10/25 19:56 Pulse 77 07/10/25 20:38 Resp 16 07/10/25 19:56 BP 103/66 07/10/25 20:38 Pulse Ox 99 07/10/25 20:36 Plan Plan: Pamela is a 30 year old 2 para 1 at 4024d GA by LMP ongoing IOL in the setting of small volume vaginal bleeding at term. is complicated by history of gestational hypertension, CF carrier (FOB negative, low risk [place]). - Cervix is now 5/90/-1, AROM performed with return of clear fluid. - Pitocin was reduced from 12mu/min to 6mu/min in the setting of tachysystole. Plan to augment as needed pending FHR/toco data. - FHR has been entirely category 1 throughout IOL. Continuous monitoring ongoing. - Bloody show is noted, within anticipated limits with no monalisa bleeding - BT B+, GBS negative - Anticipate next exam in 4 hours, sooner as clinically indicated
[2025-07-10] MEDS: ePHEDrine sulfate 5 MG/ML inj 10 MG IVP (20:50)
--- NOTE | 2025-07-10 20:51 | PM.ANBPRC ---
[facility] Medical History Gestational hypertension ?O13.9 - Gestational [-induced] hypertension without significant proteinuria, unspecified trimester (ICD-10) Surgical History History of ovarian cystectomy ?Z98.890 - Other specified postprocedural states (ICD-10) ?Z87.42 - Personal history of other diseases of the female genital tract (ICD-10) Social History Narrative: . Her family owns [employer] [facility], [facility] What is your current living situation?: I presently have a place to live Problems where you live: no known problems In the past 12 months, utilities in danger of being shut off: no In past 12 months, lack of transportation kept you from medical appts, meetings, work, or getting things needed for daily living: no In the past 12 mos, have been you worried that your food would run out before you had money to buy more?: never true In the past 12 mos, the food you bought just didn't last and you didn't have money to buy more?: never true Smoking Status: Never smoker Do you use any of these nicotine containing products: None How often do you have a drink containing alcohol: never How often do you have six or more drinks on one occasion: Never AUDIT-C Alcohol total score: 0 Non-prescribed substance use: denies use Caffeine: No How often does anyone, including family, friends and others, physically hurt you: never How often does anyone, including family, friends and others, insult or talk down to you: never How often does anyone, including family, friends and others, threaten you with harm: never How often does anyone, including family, friends and others, scream or curse at you: never Are you using contraception or practicing any form of control: No Meds Home Medications and Allergies Home Medications ?Medication ?Instructions ?Recorded ?Confirmed ?Type docosahexaenoic acid 200 mg 200 mg PO DAILY 11/27/24 07/10/25 History capsule ( DHA) ferrous sulfate 325 mg (65 mg 325 mg PO QMWF #30 tabs 04/19/25 07/10/25 Rx iron) tablet magnesium glycinate 200 mg PO DAILY 05/02/25 07/10/25 History Allergies Allergy/AdvReac Type Severity Reaction Status Date / Time No Known Drug Allergies Allergy Verified 07/10/25 10:46 Results Labs Labs: Laboratory Results - last 24 hr 07/10/25 07/10/25 11:27 12:20 WBC 9.91 RBC 3.53 L Hgb 10.5 L Hct 32.3 L MCV 92 MCH 30 MCHC 33 RDW Coeff of Jalil 15.0 Plt Count 188 Neut % (Auto) 78.9 H Lymph % (Auto) 12.7 L [place] % (Auto) 7.2 Eos % (Auto) 0.7 Baso % (Auto) 0.2 Neut # (Auto) 7.80 H Lymph # (Auto) 1.30 [place] # (Auto) 0.70 Eos # (Auto) 0.07 Baso # (Auto) 0.02 Abs Immat Gran (auto) 0.03 Imm/Tot Granulo (auto) 0.3 INR 0.86 L APTT 29 Fibrinogen 462 H Vaginal Trichomonas No Trichomonas Seen Vaginal Yeast No Yeast Seen Vaginal Clue Cells No Clue Cells Seen Blood Type B Positive Antibody Screen NEGATIVE Vital Signs Vital Signs: Last Vital Signs Temp 97.6 F 07/10/25 19:56 Pulse 70 07/10/25 20:50 Resp 16 07/10/25 19:56 BP 87/56 L 07/10/25 20:50 Pulse Ox 99 07/10/25 20:46 Weight: 69.853 kg Height: 162.56 cm Anesthesia Procedures Epidural Insertion Patient Location: OB Start Time: 20:00 Stop Time: 20:40 Start Date: 07/10/25 Stop Date: 07/10/25 Reason for Block: procedure for pain Patient Position: sitting Performed By: Candis Schulz Preanesthetic Checklist: IV checked, site marked, risks and benefits discussed, monitors and equipment checked, pre-op evaluation, timeout performed and anesthesia consent Prep: chlorhexidine gluconate Monitoring: blood pressure monitoring, continuous pulse oximetry and heart rate Approach: midline Vertebral Space: lumbar (1-5) Epidural Technique: JESICA saline Needle Type: Tuohy needle Injection Technique: continuous catheter Needle gauge: 17 Needle Length (cm): 10 cm Needle Insertion Depth (cm): 5 Catheter Gauge: 19 Catheter Type: multi-orifice Catheter at skin depth (cm): 15 Test Dose Result: negative and lidocaine 1.5% with epinephrine 1 to 200,000
--- NOTE | 2025-07-10 21:51 | W.PM.VAGD1_ITS ---
Procedure Procedure Done: Global Procedure Details: Normal spontaneous vaginal delivery Second degree laceration repair Events: Other (Vaginal bleeding prompting IOL, history of gHTN) Intrapartal Events: Labor Induction Delivery augmentation: rupture of membranes Delivery monitor: none Route of delivery: Laceration description: Perineal - 2nd Degree Delivery repair: Vicryl Estimated blood loss (mL): 275 Anesthesia type: Epidural Disposition: floor Complications: None Narrative: Pamela is a 30 yo at 40w4d GA admitted for IOL in the setting of vaginal bleeding at term. is complicated by history of gHTN, CF carrier (low risk [place]). heart tones on admission were category 1. Her labor was induced with IV pitocin and epidural was utilized for pain management. Status of bag of sykes: AROM performed intrapartum, clear fluid. heart tones during active labor were category 1. She was complete at 2153 and started pushing at 2157. She made excellent descent throughout the second stage of labor, and had a normal spontaneous vaginal delivery at 2213. heart tones during second stage of labor were category 1 and 2 for intermittent variable decelerations, with rapid return to baseline 150bpm. When delivery was imminent, FHR was noted to overshoot baseline to 160- 190bpm briefly. Baby delivered OA, restituted JACQUELIN and the anterior and posterior shoulders delivered without difficulty. Nuchal cord: none. The cord was clamped and cut after delayed cord clamping. Active management of the third stage occurred with IV pitocin and gentle cord traction and the placenta delivered spontaneous and intact at 2219. Cord gases sent: no Cord blood sent for infant ABO: no details: - Liveborn female fetus at 2213 - weight pending at time of documentation - APGARs were 8 and 9 at 1 and 5 minutes respectively Perineum and vagina were inspected, and the following lacerations were noted: small 2nd degree, right labial laceration. Second degree repair was completed in the usual fashion with 2-0 vicryl under epidural analgesia. Two interrupted subcuticular sutures were placed in the right labial laceration to reapproximate tissues. Excellent hemostasis was noted. The following counts were correct: sponges, needles, instruments. Mother and infant in stable condition following the . Infant Infant Gender: Female presentation: vertex Placental Delivery Description: Spontaneous Cord Description: 3 Vessels
[2025-07-10] MEDS: IBUPROFEN 600 MG TABLET PO (23:13)
[2025-07-11] VITALS (7 sets, daily range): BP systolic 111–129; BP diastolic 64–82; PULSE 75–98; RESP 16; TEMP 36.4–36.9; O2SAT 96–98
[2025-07-11] MEDS: IBUPROFEN 600 MG TABLET PO ×2 (05:18→10:50)
[2025-07-11 05:51] LABS: Hemoglobin* 10.5 gm/dL (12.0-16.0)
[2025-07-11] MEDS: DOCUSATE SODIUM 100 MG CAPSULE PO (10:50)
--- NOTE | 2025-07-11 13:12 | P.DS_ITS ---
DS: Providers Provider Date Seen: 07/11/25 Date of admission: 07/10/25 11:30 Primary care physician: Not a Local Provider Admitting Clinician: Pat Rowan MD Attending Physician on discharge: Yao Epperson CNM Date of Discharge: 07/11/25 DS: Diagnosis Discharge Diagnosis (1) care and examination immediately after delivery: Status: Acute (2) (normal spontaneous vaginal delivery): Status: Acute Exam Narrative: Exam Narrative: VSS, afebrile GENERAL APPEARANCE: ?normal affect, alert, no distress MOOD: ?appropriate HEENT: normocephalic, neck supple, full ROM CHEST: ?Symmetrical chest wall movement. ?Normal respiratory effort. ?Clear to auscultation HEART: ?regular rate and rhythm ABDOMEN: ?soft, non-tender. Uterine fundus is firm, at Umbilicus, Midline and is appropriate for the stage of recovery. ?Bowel sounds present. PERINEUM: ?mild edema of the perineum, there is a 2nd degree laceration that is healing well. EXTREMITIES: ?normal and no edema Const: Vital Signs, click to edit/add: Vital Signs - 24 hr 07/10/25 14:15 07/10/25 14:41 07/10/25 16:09 Temperature 97.8 F Pulse Rate 90 89 Pulse Rate [Pulse Oximeter] Respiratory Rate 16 Blood Pressure 127/75 125/76 Blood Pressure [Le ft Arm] Pulse Oximetry Oxygen Delivery Ca thod 07/10/25 16:09 07/10/25 17:00 07/10/25 17:00 Temperature 97.9 F 98.3 F Pulse Rate 80 Pulse Rate [Pulse Oximeter] Respiratory Rate 16 16 Blood Pressure 129/80 Blood Pressure [Le ft Arm] Pulse Oximetry Oxygen Delivery Ca thod 07/10/25 18:09 07/10/25 19:09 07/10/25 19:09 Temperature 97.8 F 97.7 F Pulse Rate 78 79 Pulse Rate [Pulse Oximeter] Respiratory Rate 16 Blood Pressure 138/88 132/84 Blood Pressure [Le ft Arm] Pulse Oximetry Oxygen Delivery Ca thod 07/10/25 19:50 07/10/25 19:56 07/10/25 20:06 Temperature 97.6 F Pulse Rate 85 Pulse Rate [Pulse Oximeter] Respiratory Rate 16 Blood Pressure 143/83 H Blood Pressure [Le ft Arm] Pulse Oximetry 100 Oxygen Delivery Me thod 07/10/25 20:11 07/10/25 20:16 07/10/25 20:20 Temperature Pulse Rate Pulse Rate [Pulse Oximeter] Respiratory Rate Blood Pressure Blood Pressure [Le ft Arm] Pulse Oximetry 100 100 92 Oxygen Delivery Me thod 07/10/25 20:21 07/10/25 20:22 07/10/25 20:24 Temperature Pulse Rate 88 107 H Pulse Rate [Pulse Oximeter] Respiratory Rate Blood Pressure 134/83 125/83 Blood Pressure [Le ft Arm] Pulse Oximetry 84 L Oxygen Delivery Me thod 07/10/25 20:26 07/10/25 20:27 07/10/25 20:30 Temperature Pulse Rate 109 H 111 H 90 Pulse Rate [Pulse Oximeter] Respiratory Rate Blood Pressure 109/70 116/70 92/52 L Blood Pressure [Le ft Arm] Pulse Oximetry 100 Oxygen Delivery Me thod 07/10/25 20:31 07/10/25 20:34 07/10/25 20:36 Temperature Pulse Rate 95 79 83 Pulse Rate [Pulse Oximeter] Respiratory Rate Blood Pressure 84/51 L 92/55 L 90/51 L Blood Pressure [Le ft Arm] Pulse Oximetry 100 99 Oxygen Delivery Me thod 07/10/25 20:38 07/10/25 20:39 07/10/25 20:41 Temperature Pulse Rate 77 99 81 Pulse Rate [Pulse Oximeter] Respiratory Rate Blood Pressure 103/66 105/60 94/51 L Blood Pressure [Le ft Arm] Pulse Oximetry 100 Oxygen Delivery Me thod 07/10/25 20:44 07/10/25 20:45 07/10/25 20:46 Temperature Pulse Rate 79 82 Pulse Rate [Pulse Oximeter] Respiratory Rate Blood Pressure 103/52 L 96/55 L Blood Pressure [Le ft Arm] Pulse Oximetry 99 Oxygen Delivery Me thod 07/10/25 20:47 07/10/25 20:50 07/10/25 20:51 Temperature Pulse Rate 76 70 Pulse Rate [Pulse Oximeter] Respiratory Rate Blood Pressure 101/58 L 87/56 L Blood Pressure [Le ft Arm] Pulse Oximetry 100 Oxygen Delivery Me thod 07/10/25 20:52 07/10/25 20:54 07/10/25 21:07 Temperature Pulse Rate 72 91 99 Pulse Rate [Pulse Oximeter] Respiratory Rate Blood Pressure 89/52 L 110/60 118/82 Blood Pressure [Le ft Arm] Pulse Oximetry Oxygen Delivery Me thod 07/10/25 21:14 07/10/25 21:20 07/10/25 21:54 Temperature Pulse Rate 107 H 100 123 H Pulse Rate [Pulse Oximeter] Respiratory Rate Blood Pressure 94/59 L 104/57 L 124/63 Blood Pressure [Le ft Arm] Pulse Oximetry Oxygen Delivery Me thod 07/10/25 22:20 07/10/25 22:20 07/10/25 22:35 Temperature Pulse Rate 105 H 99 Pulse Rate [Pulse Oximeter] Respiratory Rate 16 Blood Pressure 120/63 115/62 Blood Pressure [Le ft Arm] Pulse Oximetry Oxygen Delivery Me thod 07/10/25 22:35 07/10/25 22:50 07/10/25 22:50 Temperature Pulse Rate 82 Pulse Rate [Pulse Oximeter] Respiratory Rate 16 16 Blood Pressure 120/67 Blood Pressure [Le ft Arm] Pulse Oximetry Oxygen Delivery Ca thod 07/10/25 23:05 07/10/25 23:05 07/10/25 23:20 Temperature 97.8 F Pulse Rate 109 H 94 Pulse Rate [Pulse Oximeter] Respiratory Rate 16 Blood Pressure 124/79 113/76 Blood Pressure [Le ft Arm] Pulse Oximetry Oxygen Delivery Ca thod 07/10/25 23:20 07/10/25 23:35 07/10/25 23:50 Temperature Pulse Rate 86 79 Pulse Rate [Pulse Oximeter] Respiratory Rate 16 Blood Pressure 117/75 115/72 Blood Pressure [Le ft Arm] Pulse Oximetry Oxygen Delivery Ca thod 07/10/25 23:50 07/11/25 00:05 07/11/25 00:05 Temperature Pulse Rate 98 Pulse Rate [Pulse Oximeter] Respiratory Rate 16 16 Blood Pressure 122/73 Blood Pressure [Le ft Arm] Pulse Oximetry Oxygen Delivery Me thod 07/11/25 00:20 07/11/25 00:20 07/11/25 00:35 Temperature Pulse Rate 97 86 Pulse Rate [Pulse Oximeter] Respiratory Rate 16 Blood Pressure 113/64 111/66 Blood Pressure [Le ft Arm] Pulse Oximetry Oxygen Delivery Me thod 07/11/25 00:35 07/11/25 01:00 07/11/25 04:48 Temperature 98.1 F 98.4 F Pulse Rate Pulse Rate [Pulse Oximeter] 75 78 Respiratory Rate 16 16 16 Blood Pressure Blood Pressure [Le ft Arm] 129/79 124/82 Pulse Oximetry 96 96 Oxygen Delivery Me thod Room Air Room Air 07/11/25 08:00 Temperature 97.8 F Pulse Rate Pulse Rate [Pulse Oximeter] 82 Respiratory Rate 16 Blood Pressure Blood Pressure [Le ft Arm] 121/75 Pulse Oximetry 98 Oxygen Delivery Me thod Room Air Documenting provider has reviewed patient's vital signs: yes OB - DS: Summary Hospital Course Hospital Course: Pamela is a 30 y.o. who was admitted to [facility] for labor. ?She had an uncomplicated NVD.?The patient feels well. ?The pain is well controlled with current medications. ?She has no new complaints. ?She is formula feeding and reports things are going well.? the patient has done well.? Vitals have been stable.? She has remained afebrile.? Has a good appetite, is tolerating a general diet. ?She is voiding without difficulty.? She is passing gas and has not had a bowel movement.? She is ambulating and denies any dizziness.? Has Small amount of rubra lochia. ?She is planning nothing for prevention. She is requesting early discharge with planned close follow up for baby tomorrow. Peripartum Data delivery method: Vaginal Laceration description: Perineal - 2nd Degree complications: none Viola Gender: Female Discharge Plan: Home Status at Discharge Functional status at discharge: independent ambulation Overall status at discharge: patient is progressing back to baseline Time Spent with Patient Time attestation: Total time spent providing and/or coordinating discharge services: Time spent: Less than 30 minutes Discharge Plan Discharge Disposition: Home, Self-Care Date of Admission: 07/10/25 11:30 Attending Provider on Discharge: Yao Epperson Primary Care Provider: Provider,Not a Local Condition: Stable Anticipated Discharge Date/Time: 07/11/25 16:00 Discharge Medications: New acetaminophen 500 mg Tablet 1,000 mg PO Q6H PRNQty: 0 0RF docusate sodium 100 mg Capsule 100 mg PO DAILY Qty: 90 0RF ibuprofen 600 mg Tablet 600 mg PO Q6H PRNQty: 60 0RF Continued DHA 200 mg capsule 200 mg PO DAILY ferrous sulfate 325 mg (65 mg iron) tablet 325 mg PO QMWF Qty: 30 2RF magnesium glycinate 100 mg magnesium capsule 200 mg PO DAILY Discharge Orders: Discharge Order (Routine); Ordered 07/11/25 Ordered By: Yao Epperson Patient Education: OB Over the Counter Medication Information, OB Vaginal/Bottle Feeding Additional Instructions: Discharge instructions were reviewed with the patient including signs and symptoms of infection and home going medications Nothing vaginally for 6 weeks: no tampons or intercourse Off Work or School for 6 weeks 2-week visit: discuss feeding concerns, review control options and screen for anxiety/depression. 6-week visit for an annual exam. consultation services are available to all mothers and babies for the first year after delivery.? To make an appointment, please call [phone]. Activity Level: Activity as Tolerated Discharge Diet: Regular Follow Up Appointments: [facility] [Provider Group] Forms: [facility] [employer] Info Instructions
--- NOTE | 2025-07-11 14:07 | PM.ANPOST ---
Post Anesthesia Note Post Anesthesia Note Patient seen: Inpatient Respiratory Status: adequate Cardiovascular Status: adequate Mental Status: baseline Pain: adequate Temp: baseline Anesthetic awareness: N/A Complications: none Follow care: none
== END 2025-07-11 16:15 | disposition home or self-care (01) | DRG 807 ==
LOC: OB OUT 11:31 → OB 11:31
PROVIDERS: Admitting Provider Obstetrics & Gynecology; Visit Provider Obstetrics & Gynecology
DX: O46.93 Antepartum hemorrhage, unspecified, third trimester (principal); Z37.0 Single live birth; O70.1 Second degree perineal laceration during delivery; Z14.1 Cystic fibrosis carrier; Z3A.40 40 weeks gestation of pregnancy
CPT/HCPCS: 01967; 36415; 85018; 85025; 85384; 85610; 85730; 86592; 86850; 86900; 86901; 87210; 88307; A9270; J2795; J3010; J7120